=== PATIENT | female | born 1955 | race Caucasian/White ===

== ENCOUNTER → 2016-10-07 | Outpatient (CLI) | payer BC ==
[~2016-10-07] MED LIST: B-CO1CAP5 PO; LEVOXYL PO; PRM625 PO
--- NOTE | 2016-10-07 16:28 | MAMMOGRAPHY REPORT ---
BILATERAL DIGITAL SCREENING MAMMOGRAM WITH CAD: 10/07/2016 CLINICAL HISTORY: Routine screening. Patient has no complaints. TECHNIQUE: Bilateral CC and MLO views were obtained. Current study was also evaluated with a Comput er Aided Detection (CAD) system. COMPARISON: Comparison is made to exams dated: 09/21/2015 mammogram, 09/30/2014 mammogram, 09/19/2014 m ammogram, 07/26/2013 mammogram, 04/03/2012 mammogram, and 03/24/2012 mammogram - [facility]. BREAST COMPOSITION: There are scattered areas of fibroglandular density in both breasts. FINDINGS: There are stable asymmetries in the right breast. No suspicious mass, architectural disto rtion or cluster of microcalcifications is seen. IMPRESSION: ACR BI-RADS CATEGORY 1: NEGATIVE There is no mammographic evidence of malignancy. A 1 year screening mammogram is recommended. The p atient will receive written notification of the results. Approximately 10% of breast cancers are not detected with mammography. A negative mammographic repor t should not delay biopsy if a clinically suggestive mass is present. Paige White M.D. ay/:10/07/2016 16:26:09 Track Patrol: Maria Del Carmen DAVIDSON(R)(M), [facility] letter sent: Normal 1/2 BI-RADS Code: ACR BI-RADS Category 1: Negative
== END ==
LOC: C.MAMM 15:47
PROVIDERS: ATTEND Family Medicine
DX: Z12.31 Encounter for screening mammogram for malignant neoplasm of breast (principal)

== ENCOUNTER 2024-11-29 15:30 | Observation (INO) ==
--- NOTE | 2024-11-29 16:08 | Emergency Department Note ---
Impression & Plan Stroke-like symptoms, Hyponatremia, Hypokalemia, Hypomagnesemia ED Provider Note ED Provider Note NAME: ISABELL MACKENZIE AGE:68 SEX: Female : 1955 ARRIVES VIA: private vehicle INFORMANT: Patient ED PROVIDER(s): Nahed Sequeira DO CHIEF COMPLAINT: difficulty with word finding HPI: This is a 68-year-old female who presents emerged from due to concern for difficulty with word finding this morning. Patient states first episode happened at around 5:40 AM and lasted approximately half an hour. She states she and her were traveling from [place] to the area. She states after they returned home this happened again around noon and lasted about the same amount of time. She states she noticed it while speaking on the phone with a coworker. She denies any accompanying headaches, dizziness, vision changes, arm or leg weakness, or difficulty walking. She states she is otherwise recently been feeling well. She does have a history of high blood pressure as well as thyroid cancer and is being treated for this. She denies any other recent illness, fevers or chills. She states her blood pressure medication was changed not too long ago. PAST MEDICAL HISTORY:See Below PAST SURGICAL HISTORY:See Below FAMILY HISTORY:See Below SOCIAL HISTORY:See Below HOME MEDICATIONS:See Below ALLERGIES:See Below VITALS:See Below PHYSICAL EXAMINATION: GENERAL: alert, well appearing, well nourished, no distress, non-toxic EYE EXAM: normal conjunctiva, PERRL and EOM's grossly intact OROPHARYNX: no exudate, no erythema, lips, buccal mucosa, and tongue normal and mucous membranes are moist NECK: supple, no nuchal rigidity, no adenopathy, non-tender LUNGS: Clear to auscultation. Normal chest wall mechanics, no w/r/r HEART: no murmurs, S1 normal and S2 normal ABDOMEN: abdomen soft, non-tender, normo-active bowel sounds, no masses, no rebound or guarding. SKIN: no rashes, petechiae, orbruising UPPER EXTREMITIES: upper extremities are grossly normal. FROM, nml pulses b/l. LOWER EXTREMITIES: No pitting edema. FROM, nml pulses b/l. NEURO EXAM: Normal sensorium, cranial nerves II-XII grossly intact, normal speech, no facial droop,nogross weakness of arms, no gross weakness of legs. Gross sensation intact. No ataxia.NIHSS 0. Vital Signs: reviewed and remarkable Differential Diagnosis: ischemic Stroke, hemorrhagic stroke, bells palsy, mass, neoplasm, migraine headache, seizure, subarachnoid hemorrhage, TIA, transient global amnesia, medication ADR, as well as others were considered MEDICAL DECISION MAKING: This is a 68-year-old female who presents emergency department due to several episodes today of difficulty with word finding and speaking. Episodes have resolved by the time of arrival here she was afebrile and hemodynamically stable on arrival. Patient was made a stroke alert upon arrival and sent urgently for CT imaging. Upon returning to the room, labs drawn and sent, IV established, EKG performed at bedside interpreted by me and patient monitored on telemetry. She had a normal and nonfocal neuroexam at bedside. CT/CTA were reassuring. I did discuss case initially with radiology as patient seen during a EMR downtime. Case then discussed with Dr. Calhoun of [facility] who recommended further stroke workup after his evaluation given likely TIA. Patient also found on labs to have significant electrolyte abnormalities. She was given oral potassium repletion and IV magnesium repletion. Case discussed with the hospitalist team for additional evaluation and management. Consultation(s): 1548: Discussed with Dr. Guy, radiology, no obvious ICH or large stroke on CT. 1601: Discussed with Dr. Calhoun, [facility] regarding the strokelike symptoms. He will evaluate her at bedside. Feels given symptoms have completely resolved, patient not a TNK candidate. Symptoms not suggestive of a large vessel occlusion additionally. 1735: Discussed with [facility] hospitalist team, for additional evaluation and management. ER Treatment Provided: See below Diagnostics Interpreted By Me: -ECG: Normal sinus at 78, normal axis, normal QRS, slightly prolonged QTc, T wave inversions noted in 3, aVF, and V3. -Cardiac Monitoring: An order was placed for continuous cardiac monitoring. The monitor shows a rate of 78 with normal sinus rhythm. -Laboratory studies: As stated above and show below. -Imaging studies: ct head: no ich Triage Nursing Note Reviewed Prior/Outside Records Reviewed Critical Care: Critical care of 39 min performed to assess and manage high likelihood of life-threatening stroke like symptoms, involving labs and imaging performed with assessment to evaluate stroke like symptoms diagnosis with frequent reassessment. This time includes bedside time, treatment discussions with patient/family/consultants, documentation time and excludes procedure time. Past Med/Surg History Problem List (Updated 11/29/24 @ 19:57 by Nahed Sequeira DO) Hypomagnesemia (Acute) Hypokalemia (Acute) Hyponatremia (Acute) Stroke-like symptoms (Acute) Recurrent thyroid cancer Pulmonary nodule Dry skin dermatitis Pruritus CMC arthritis Capsulitis of metatarsophalangeal (MTP) joint Mass in neck Acid reflux Hypoparathyroidism (Chronic) Vitamin D deficiency (Chronic) Hypothyroidism, postablative (Chronic) Hx of papillary thyroid carcinoma (Chronic) Lumbar spondylosis (Chronic) Lumbar radicular pain (Chronic) Sacroiliitis (Chronic) HTN (hypertension) (Chronic) Medical History (Updated 11/29/24 @ 19:57 by Nahed Sequeira DO) Anemia HTN (hypertension) Lumbar spondylosis Hx of papillary thyroid carcinoma 2018; per chart review, had recurrence in 2 nodules anterior neck which were removed 2020 Hypothyroidism Acid reflux Arthritis Hx of dermatitis Pulmonary nodule History of COVID-19 (2022) no hosp; resolved History of postoperative nausea and vomiting History of anesthesia reaction hx elevated bp post op Surgical History History of esophagogastroduodenoscopy (EGD) Hx of colonoscopy History of foot surgery left History of appendectomy H/O thumb surgery H/O hernia repair Hx of tonsillectomy H/O: hysterectomy H/O thyroidectomy 2017 Family History Sister Hypothyroidism Mother Hearing loss Hypertension Asthma Father Cancer Brother Allergies Other No family history of adverse response to anesthesia No family history of bleeding disorder Social History Smoking Status: Former smoker Tobacco Type: Cigarettes Age Started Using Tobacco: 36; Age Quit Using Tobacco: 38; packs per day: 0.5; Second Hand Exposure: No; Hx Alcohol Use: Yes Alcohol type: beer Alcohol type Comment: 5 Hx Substance Use: No Preferred Language: Lao Communication Ability: Effective Visual Impairment: No Limitations Hearing Ability: Normal Identification Technician Required: No Beliefs That Will Affect Care: None marital status: Current Living Situation: Significant Other current occupational status: employed 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 azithromycin Allergy Intermediate Hives Verified 11/29/24 17:31 chondroitin sulfate A Allergy Intermediate Rash Verified 11/29/24 17:31 [From Osteo Bi-Flex] clindamycin Allergy Intermediate Rash Verified 11/29/24 17:31 glucosamine Allergy Intermediate Rash Verified 11/29/24 17:31 [From Osteo Bi-Flex] prednisone Allergy Intermediate RASH Verified 11/29/24 17:31 strawberry Allergy Intermediate Hives Verified 11/29/24 17:31 albuterol AdvReac Intermediate Tachycardia Verified 11/29/24 17:31 levofloxacin AdvReac Intermediate GI UPSET Verified 11/29/24 17:31 Sulfa (Sulfonamide AdvReac Intermediate Tachycardia Verified 11/29/24 17:31 Antibiotics) sulfadiazine AdvReac Intermediate Abdominal Verified 11/29/24 17:31 Pain sulfamethoxazole AdvReac Intermediate Tachycardia Verified 11/29/24 17:31 tetracycline AdvReac Intermediate Abdominal Verified 11/29/24 17:31 Pain HYDROcodone-Homatropine SYRP AdvReac Unknown Unknown Uncoded 11/29/24 17:31 Home Meds Home Medications Medication Instructions Recorded Confirmed omeprazole magnesium 20 mg 20 mg PO DAILY PRN Acid Reflux 01/20/24 11/29/24 tablet,delayed release (Prilosec OTC) hydrochlorothiazide 25 mg tablet 25 mg PO QPM 09/06/24 11/29/24 cholecalciferol (vitamin D3) 50 4,000 unit PO QDD 11/29/24 11/29/24 mcg (2,000 unit) capsule clobetasol 0.05 % topical ointment 1 applic topical DAILY PRN SKIN 11/29/24 11/29/24 RASH estradiol 1 mg tablet 1 mg PO QPM 11/29/24 11/29/24 lenvatinib 14 mg/day (10 mg x 1 17 mg PO QPM 11/29/24 11/29/24 and 4 mg x 1) capsule (Lenvima) valsartan 320 mg tablet 320 mg PO QPM 11/29/24 11/29/24 vitamin B complex 1 tab PO QPM 11/29/24 11/29/24 Previous Rx's Medication Instructions Recorded levothyroxine 200 mcg tablet 200 mcg PO DAILY #30 tabs 09/12/24 levothyroxine 25 mcg tablet 25 mcg PO DAILY #30 tabs 09/12/24 Results & Data (ED) Vital Signs Vital Signs - 24 hr 11/29/24 16:02 11/29/24 16:02 11/29/24 16:09 Pulse Rate Pulse Rate [Apical] 77 78 Respiratory Rate 18 18 Respiratory Effort / Characteristics Non-Labored Spontaneous Non-Labored Spontaneous Respiratory Depth Normal Normal Respiratory Pattern Regular Blood Pressure Blood Pressure [Left Arm] 160/88 H 172/98 H Blood Pressure Mean Blood Pressure Mean [Left Arm] 112 122 Pulse Oximetry 98 98 95 Oxygen Delivery Method Room Air Room Air Room Air 11/29/24 16:16 11/29/24 18:16 11/29/24 19:13 Pulse Rate 77 75 Pulse Rate [Apical] 77 Respiratory Rate 18 20 Respiratory Effort / Characteristics Non-Labored Spontaneous Respiratory Depth Normal Respiratory Pattern Blood Pressure 181/105 H Blood Pressure [Left Arm] 186/102 H Blood Pressure Mean 130 Blood Pressure Mean [Left Arm] 130 Pulse Oximetry 96 98 Oxygen Delivery Method Room Air Room Air Laboratory Data 11/29/24 Unknown 11/29/24 Unknown Lab Results 11/29/24 11/29/24 11/29/24 Range/Units 17:48 18:17 Unknown WBC 3.24 L (4.8-10.8) K/ul RBC 3.56 L (4.20-5.40) M/uL Hgb 12.6 (12.0-16.0) g/dl Hct 34.8 L (37.0-47.0) % MCV 97.8 (80.0-100.0) fL MCH 35.4 H (25.0-34.0) pg MCHC 36.2 H (32.0-36.0) g/dL RDW Std Deviation 49.1 H (36.4-46.3) fL RDW Coeff of Cindi 13.7 (11.5-14.5) % Plt Count 138 (130-400) K/uL MPV 10.6 (9.4-12.4) fL Immature Gran % (Auto) 0.0 % Neut % (Auto) 50.0 % Lymph % (Auto) 34.6 % [place] % (Auto) 13.9 % Eos % (Auto) 0.9 % Baso % (Auto) 0.6 % Neut # (Auto) 1.62 (1.40-6.50) K/uL Lymph # (Auto) 1.12 L (1.20-3.40) K/uL [place] # (Auto) 0.45 (0.11-0.59) K/uL Eos # (Auto) 0.03 (0.00-0.50) K/uL Baso # (Auto) 0.02 (0.00-0.20) K/uL Immature Gran # (Auto) 0.00 L (0.01-0.20) K/uL PT 10.4 (9.0-12.0) Seconds INR 1.0 (0.9-1.1) APTT 28 (21-31) Seconds PTT Ratio 1.0 Sodium 125 L (136-145) mmol/L Potassium 2.9 L (3.5-5.1) mmol/L Chloride 86 L (98-107) mmol/L Carbon Dioxide 27 (21-32) mmol/L Anion Gap 12 H (3-11) BUN 10 (6-23) mg/dl Creatinine 0.58 L (0.6-1.2) mg/dl Est Cr Clr Drug Dosing 81.2 ml/min eGFR 97.29 BUN/Creatinine Ratio 17.2 (10-20) Glucose 102 H (70-99(Fasting)) mg/dl Osmolality 255 L (280-300) mOsm/kg Calcium 7.7 L (8.6-10.3) mg/dl Magnesium 1.4 L (1.7-2.4) mg/dl Total Bilirubin 0.8 (0.2-1.0) mg/dl AST 24 (13-39) U/L ALT 19 (7-52) U/L Alkaline Phosphatase 97 (34-104) U/L Troponin I High Sens 22.5 H 26.9 H (0-14) pg/ml Total Protein 6.7 (6.0-8.3) gm/dl Albumin 3.7 (3.4-5.0) gm/dl Globulin 3.0 (2.5-4.0) gm/dl Albumin/Globulin Ratio 1.2 (0.9-2) Urine Color Yellow Urine Appearance Clear (Clear) Urine pH 6.0 (4.5-7.5) Ur Specific [place] 1.037 H (1.000-1.030) Urine Protein Negative (Negative) Urine Glucose (UA) Negative (Negative) Urine Ketones Trace H (Negative) Urine Blood Negative (Negative) Urine Nitrite Negative (Negative) Urine Bilirubin Negative (Negative) Urine Urobilinogen Negative (Negative) Ur Leukocyte Esterase Negative (Negative) Urine Osmolality 200 L (500-800) mOsm/kg Ur Random Sodium 28 mmol/L Urine Comment Administered Medications Discontinued Medications Magnesium Sulfate/Dextrose (Magnesium Sulfate / D5w) 1 gm in 100 mls @ 100 mls/hr IV NOW STA Stop: 11/29/24 17:49 Last Infusion: 11/29/24 18:06 Dose: Infused Documented By: Admin: 11/29/24 17:04 Dose: 100 mls/hr Documented By: MARTHA Sodium Chloride (Nss) 1,000 mls @ 999 mls/hr IV .Q1H1M MASON Stop: 11/29/24 18:59 Last Infusion: 11/29/24 19:45 Dose: Infused Documented By: Admin: 11/29/24 18:17 Dose: 999 mls/hr Documented By: MARTHA Ioversol (Optiray 320 125ml) 120 ml IV ONCE ONE Stop: 11/29/24 16:21 Last Admin: 11/29/24 16:20 Dose: 120 ml Documented By: JOSEF Potassium Chloride (Potassium Chloride Crtab 20 Meq Tabcr) 40 meq PO NOW STA Stop: 11/29/24 16:51 Last Admin: 11/29/24 17:04 Dose: 40 meq Documented By: MARTHA Imaging Data Radiologist's Impression: Head CT 11/29/24 16:09 CT SCAN OF THE BRAIN WITHOUT IV CONTRAST CLINICAL HISTORY: Stroke alert. COMPARISON STUDY: PET/CT October 20, 2024. TECHNIQUE: Unenhanced axial CT scan of the brain was performed from the vertex to the skull base. A dose lowering technique was utilized adhering to the principles of ALARA. FINDINGS: No acute intracranial hemorrhage, midline shift or mass effect is present. Ventricular system is normal. Basal cisterns are patent. There are no extra axial collections. White matter hypodensity suggests small vessel disease. A 7 mm hypodensity within the right basal ganglia is age-indeterminate but probably old. Comparison with prior PET/CT is difficult given differences in technique. IMPRESSION: 1. No acute intracranial findings. 2. 7 mm hypodensity within the right basal ganglia which is age-indeterminate but likely chronic. ACT 112: Negative or not required by law. Electronically signed by: Jsoe Guy M.D. 11/29/2024 4:28 PM Head CTA 11/29/24 16:09 CT angio neck with con, CT angio head w con CLINICAL HISTORY: neuro deficit, acute stroke suspected. TECHNIQUE: Following the IV administration of 120 of Optiray, CT angiogram of the neck was performed from the aortic arch to the skull base. Images are reviewed in the axial, sagittal, and coronal planes. 3-D MIPS images are created and assessed. IV contrast was administered without complication. All measurements were calculated based on NASCET criteria. A dose lowering technique was utilized adhering to the principles of ALARA. COMPARISON STUDY: None FINDINGS: The origin of the left common carotid artery is off the field of view inferiorly. No significant narrowing or occlusion seen at the common or internal carotid or vertebral arteries bilaterally. Basilar artery is patent. Anterior, middle, and posterior cerebral arteries are patent bilaterally. Cerebral venous sinuses opacify normally. IMPRESSION: No significant arterial narrowing or occlusion seen at the neck or brain. ACT 112: Negative or not required by law. The above report was generated using voice recognition software. It may contain grammatical, syntax or spelling errors. Electronically signed by: Willian Nichols M.D. 11/29/2024 4:28 PM Neck CTA 11/29/24 16:09 CT angio neck with con, CT angio head w con CLINICAL HISTORY: neuro deficit, acute stroke suspected. TECHNIQUE: Following the IV administration of 120 of Optiray, CT angiogram of the neck was performed from the aortic arch to the skull base. Images are reviewed in the axial, sagittal, and coronal planes. 3-D MIPS images are created and assessed. IV contrast was administered without complication. All measurements were calculated based on NASCET criteria. A dose lowering technique was utilized adhering to the principles of ALARA. COMPARISON STUDY: None FINDINGS: The origin of the left common carotid artery is off the field of view inferiorly. No significant narrowing or occlusion seen at the common or internal carotid or vertebral arteries bilaterally. Basilar artery is patent. Anterior, middle, and posterior cerebral arteries are patent bilaterally. Cerebral venous sinuses opacify normally. IMPRESSION: No significant arterial narrowing or occlusion seen at the neck or brain. ACT 112: Negative or not required by law. The above report was generated using voice recognition software. It may contain grammatical, syntax or spelling errors. Electronically signed by: Willian Nichols M.D. 11/29/2024 4:28 PM Discharge Plan Visit Data Chief Complaint: Stroke Alert Stated Complaint: CONFUSED, SLURRED SPEECH ED Provider: Nahed Sequeira Discharge Problem: Stroke-like symptoms, Hyponatremia, Hypokalemia, Hypomagnesemia Patient Disposition: Being Evaluated by Hospitalist Condition: Fair Forms Stand Alone Forms: [facility] Prescriptions Prescriptions: No Action omeprazole magnesium [Prilosec OTC] 20 mg tablet,delayed release (DR/EC) 20 mg PO DAILY PRN (Reason: Acid Reflux) hydrochlorothiazide 25 mg tablet 25 mg PO QPM levothyroxine 25 mcg tablet 25 mcg PO DAILY Qty: 30 5RF Rx Instructions: TOTAL DOSE 225 MCG--TAKES WITH 200 MCG TAB. LT4 levothyroxine 200 mcg tablet 200 mcg PO DAILY Qty: 30 5RF Rx Instructions: TOTAL DOSE 225 MCG--TAKES WITH 25 MCG TAB. LT4 valsartan 320 mg tablet 320 mg PO QPM vitamin B complex Tablet 1 tab PO QPM Lenvima 14 mg/day(10 mg x 1-4 mg x 1) capsule 17 mg PO QPM estradiol 1 mg tablet 1 mg PO QPM clobetasol 0.05 % ointment 1 applic topical DAILY PRN (Reason: SKIN RASH) cholecalciferol (vitamin D3) 50 mcg (2,000 unit) capsule 4,000 unit PO QDD Referrals Referrals: Francis Robertson MD [Primary Care Provider] -
[2024-11-29] MEDS: OPTIRAY 320 125ml IV ONE (16:20)
[2024-11-29 16:24] LABS: Hematocrit (blood only) 34.8 % (37.0-47.0); Hemoglobin 12.6 g/dl (12.0-16.0); Immature Granulocytes # (auto) 0.00 K/uL (0.01-0.20); Immature Granulocytes % (auto) 0.0 %; Mean Corpuscular Hemoglobin 35.4 pg (25.0-34.0); Mean Corpuscular Volume 97.8 fL (80.0-100.0); Platelet Count 138 K/uL (130-400); RDW Standard Deviation 49.1 fL (36.4-46.3); Red Blood Count 3.56 M/uL (4.20-5.40); White Blood Count 3.24 K/ul (4.8-10.8)
--- NOTE | 2024-11-29 16:30 | CT Scan Report ---
CT angio neck with con, CT angio head w con CLINICAL HISTORY: neuro deficit, acute stroke suspected. TECHNIQUE: Following the IV administration of 120 of Optiray, CT angiogram of the neck was performed from the aortic arch to the skull base. Images are reviewed in the axial, sagittal, and coronal plane s. 3-D MIPS images are created and assessed. IV contrast was administered without complication. All m easurements were calculated based on NASCET criteria. A dose lowering technique was utilized adherin g to the principles of ALARA. COMPARISON STUDY: None FINDINGS: The origin of the left common carotid artery is off the field of view inferiorly. No signif icant narrowing or occlusion seen at the common or internal carotid or vertebral arteries bilaterally . Basilar artery is patent. Anterior, middle, and posterior cerebral arteries are patent bilaterally. Cerebral venous sinuses opacify normally. IMPRESSION: No significant arterial narrowing or occlusion seen at the neck or brain. ACT 112: Negative or not required by law. The above report was generated using voice recognition software. It may contain grammatical, syntax o r spelling errors. Electronically signed by: Willian Nichols M.D. 11/29/2024 4:28 PM
--- NOTE | 2024-11-29 16:30 | CT Scan Report ---
CT SCAN OF THE BRAIN WITHOUT IV CONTRAST CLINICAL HISTORY: Stroke alert. COMPARISON STUDY: PET/CT October 20, 2024. TECHNIQUE: Unenhanced axial CT scan of the brain was performed from the vertex to the skull base. A dose lowering technique was utilized adhering to the principles of ALARA. FINDINGS: No acute intracranial hemorrhage, midline shift or mass effect is present. Ventricular syst em is normal. Basal cisterns are patent. There are no extra axial collections. White matter hypodensi ty suggests small vessel disease. A 7 mm hypodensity within the right basal ganglia is age-indetermin ate but probably old. Comparison with prior PET/CT is difficult given differences in technique. IMPRESSION: 1. No acute intracranial findings. 2. 7 mm hypodensity within the right basal ganglia which is age-indeterminate but likely chronic. ACT 112: Negative or not required by law. Electronically signed by: Jose Guy M.D. 11/29/2024 4:28 PM
[2024-11-29 16:38] LABS: Alanine Aminotransferase 19.0 U/L (7-52); Albumin Globulin Ratio 1.2 (0.9-2); Alkaline Phosphatase 97.0 U/L (34-104); Anion Gap 12.0 (3-11); Bilirubin,Total 0.8 mg/dl (0.2-1.0); Blood Urea Nitrogen 10.0 mg/dl (6-23); Calcium 7.7 mg/dl (8.6-10.3); Carbon Dioxide 27.0 mmol/L (21-32); Chloride 86.0 mmol/L (98-107); Creatinine Clr Calc Pharmacy 81.2 ml/min; Globulin 3.0 gm/dl (2.5-4.0); Glucose 102.0 mg/dl (70-99(Fasting)); Magnesium 1.4 mg/dl (1.7-2.4); Potassium 2.9 mmol/L (3.5-5.1); Sodium 125.0 mmol/L (136-145); Total Protein 6.7 gm/dl (6.0-8.3)
[2024-11-29 16:50] LABS: INR 1.0 (0.9-1.1); Partial Thromboplastin Time 28 Seconds (21-31); Prothrombin Time 10.4 Seconds (9.0-12.0)
[2024-11-29] MEDS: POTASSIUM CHLORIDE CRTAB 20 MEQ TABCR PO STA ×2 (17:04→20:28)
[2024-11-29] MEDS: MAGNESIUM SULFATE / D5W 1 GM/100 ML BAG IV STA (17:04)
[2024-11-29] MEDS ORDERED: SODIUM CHLORIDE 0.9% 1,000 ML IV SCH (18:00)
[2024-11-29] MEDS: SODIUM CHLORIDE 0.9% 1,000 ML IV SCH (18:17)
[2024-11-29 18:26] LABS: Appearance Urine Clear (Clear); Glucose Urine UA Negative (Negative)
--- NOTE | 2024-11-29 18:26 | History & Physical Report ---
Date of Service November 29, 2024 Assessment & Plan (1) Stroke-like symptoms: (2) Recurrent thyroid cancer: (3) Pulmonary nodule: (4) HTN (hypertension): (5) Anemia: Plan 68-year-old female with past medical history of stage IV thyroid cancer with metastasis to her lungs, hypertension, post ablative hypothyroidism and hypoparathyroidism, GERD, vitamin D deficiency. She presented after experiencing 2 episodes of difficulty with word finding and speaking that both resolved after 30 minutes. She was asymptomatic upon arrival to ED. She was admitted for stroke workup and electrolyte derangement repletion. #TIA - symptoms of difficulty with word finding and speaking x 2 episodes, both resolved after 30 minutes. Asymptomatic since arrival to ED. CTA H/N neg. Symptoms may be from hyponatremia - Brain MRI pending - Echocardiogram pending to assess for thrombus - last echo in July 2024 noted EF 63%, no regional wall motion abnormalities, normal diastolic function - Start Plavix 75 mg daily. Deferring DAPT with aspirin given anaphylactic allergy to NSAIDs - Start high intensity statin with Atorvastatin 40 mg daily - Lipid panel, A1c ordered with AM labs - PT/OT consulted #Electrolyte derangements hyponatremia at 125, hypokalemia at 2.7, hypomagnesemia at 1.4, hypocalcemia at 7.7 - Patient reports this has been an ongoing problem since starting Lenvima for her thyroid cancer - Repleted with 1 g IV mag, 40 mEq PO K, and NSS @125 cc/hrr in ED. Will replete with additional 2 g IV mag, 40 mEq PO K, 1 g IV calcium gluconate, and 1 L NSS bolus - Repeat BMP at 2000. Repeat BMP, CBC, mag with a.m. labs - Serum osmolality, urine osmolality, urine sodium pending #Metastatic thyroid cancer -follows with [facility]CP and endocrinology - Continue levothyroxine 225 mcg daily - Recently transitioned to levothyroxine from [place] Thyroid in August 2024 by endocrinology. Will add TSH to a.m. labs. Per endocrinology note, goal of thyroid treatment is to make TSH essentially undetectable -continue home Lenvima #Hypertension - Continue valsartan 320 mg daily as symptoms have resolved and this is TIA, no permissive hypertension needed - IV Hydralazine PRN with parameters Dispo: PCU VTE PPx: SCDs, Plavix CODE STATUS: Full code History of Present Illness Chief Complaint: Difficulty with word finding Primary Care Provider: Francis Robertson MD Mario is a pleasant 68-year-old female with past medical history of stage IV thyroid cancer with metastasis to her lungs, hypertension, post ablative hypothyroidism and hypoparathyroidism, GERD, vitamin D deficiency. She presented from home with difficulty with word finding and speaking. At the time my exam, the patient was lying in bed in no acute distress. She states around 5:45 AM this morning, she had an episode of difficulty with word finding and speaking when driving home from [place]. She describes this as "knowing when I went to say but different words were coming out of my mouth." This resolved after approximately 30 minutes. She had a second episode with the same symptoms again around 12:00 when on the phone with her coworker. Again, this resolved after approximately 30 minutes. She has been completely asymptomatic since her arrival to the ED. She denies any lightheadedness, dizziness, visual changes, headache, unilateral weakness, difficulty ambulating, facial droop, chest pain, shortness of breath during these episodes. Recent medication changes include transitioning from [place] Thyroid to levothyroxine, discontinuing HCTZ and starting spironolactone, and discontinuing a different ARB and starting valsartan. She notes that approximately a week and a half ago when she started the spironolactone and valsartan, she began having significant diarrhea. She stopped her spironolactone and restarted her HCTZ at that time. She also started taking Imodium at that time. Her diarrhea has since resolved. She has a listed anaphylactic allergy to NSAIDs. When asked if she has taken aspirin, she reports "probably in childhood but definitely not in the past couple decades." Vitals on admission significant for hypertension with BP 186/102; vitals otherwise stable. Labs on admission are significant for leukopenia (chronic), hyponatremia with NA 125, hypokalemia with K2.9, hypomagnesemia with mag 1.4, hypocalcemia with Ca 7.7. Head CT, head CTA, neck CTA on admission without acute findings. We discussed code status, patient wishes to be a full code. Allergies Allergy/AdvReac Type Severity Reaction Status Date / Time NSAIDS (Non-Steroidal Allergy Severe ANAPHYLAXIS Verified 11/29/24 17:31 Anti-Inflamma Penicillins Allergy Severe SWELLING Verified 11/29/24 17:31 A CHILD PER HER PARENTS. azithromycin Allergy Intermediate Hives Verified 11/29/24 17:31 chondroitin sulfate A Allergy Intermediate Rash Verified 11/29/24 17:31 [From Osteo Bi-Flex] clindamycin Allergy Intermediate Rash Verified 11/29/24 17:31 glucosamine Allergy Intermediate Rash Verified 11/29/24 17:31 [From Osteo Bi-Flex] prednisone Allergy Intermediate RASH Verified 11/29/24 17:31 strawberry Allergy Intermediate Hives Verified 11/29/24 17:31 albuterol AdvReac Intermediate Tachycardia Verified 11/29/24 17:31 levofloxacin AdvReac Intermediate GI UPSET Verified 11/29/24 17:31 Sulfa (Sulfonamide AdvReac Intermediate Tachycardia Verified 11/29/24 17:31 Antibiotics) sulfadiazine AdvReac Intermediate Abdominal Verified 11/29/24 17:31 Pain sulfamethoxazole AdvReac Intermediate Tachycardia Verified 11/29/24 17:31 tetracycline AdvReac Intermediate Abdominal Verified 11/29/24 17:31 Pain homatropine AdvReac Unknown Unknown Verified 11/29/24 20:19 [From Hycodan (with homatropine)] hydrocodone AdvReac Unknown Unknown Verified 11/29/24 20:19 [From Hycodan (with homatropine)] Home Medications Medication Instructions Recorded Confirmed Type omeprazole magnesium 20 mg 20 mg PO DAILY PRN Acid Reflux 01/20/24 11/29/24 History tablet,delayed release (Prilosec OTC) hydrochlorothiazide 25 mg tablet 25 mg PO QPM 09/06/24 11/29/24 History levothyroxine 200 mcg tablet 200 mcg PO DAILY #30 tabs 09/12/24 11/29/24 Rx levothyroxine 25 mcg tablet 25 mcg PO DAILY #30 tabs 09/12/24 11/29/24 Rx cholecalciferol (vitamin D3) 50 4,000 unit PO QDD 11/29/24 11/29/24 History mcg (2,000 unit) capsule clobetasol 0.05 % topical ointment 1 applic topical DAILY PRN SKIN 11/29/24 11/29/24 History RASH estradiol 1 mg tablet 1 mg PO QPM 11/29/24 11/29/24 History lenvatinib 14 mg/day (10 mg x 1 17 mg PO QPM 11/29/24 11/29/24 History and 4 mg x 1) capsule (Lenvima) valsartan 320 mg tablet 320 mg PO QPM 11/29/24 11/29/24 History vitamin B complex 1 tab PO QPM 11/29/24 11/29/24 History Past Med/Surg History Problem List (Updated 11/29/24 @ 19:57 by Nahed Sequeira DO) Hypomagnesemia (Acute) Hypokalemia (Acute) Hyponatremia (Acute) Stroke-like symptoms (Acute) Recurrent thyroid cancer Pulmonary nodule Dry skin dermatitis Pruritus CMC arthritis Capsulitis of metatarsophalangeal (MTP) joint Mass in neck Acid reflux Hypoparathyroidism (Chronic) Vitamin D deficiency (Chronic) Hypothyroidism, postablative (Chronic) Hx of papillary thyroid carcinoma (Chronic) Lumbar spondylosis (Chronic) Lumbar radicular pain (Chronic) Sacroiliitis (Chronic) HTN (hypertension) (Chronic) Medical History (Updated 11/29/24 @ 19:57 by Nahed Sequeira DO) Anemia HTN (hypertension) Lumbar spondylosis Hx of papillary thyroid carcinoma 2018; per chart review, had recurrence in 2 nodules anterior neck which were removed 2020 Hypothyroidism Acid reflux Arthritis Hx of dermatitis Pulmonary nodule History of COVID-19 (2022) no hosp; resolved History of postoperative nausea and vomiting History of anesthesia reaction hx elevated bp post op Surgical History History of esophagogastroduodenoscopy (EGD) Hx of colonoscopy History of foot surgery left History of appendectomy H/O thumb surgery H/O hernia repair Hx of tonsillectomy H/O: hysterectomy H/O thyroidectomy 2017 Family History Sister Hypothyroidism Mother Hearing loss Hypertension Asthma Father Cancer Brother Allergies Other No family history of adverse response to anesthesia No family history of bleeding disorder Social History Smoking Status: Never smoker Tobacco Type: Cigarettes Age Started Using Tobacco: 36; Age Quit Using Tobacco: 38; packs per day: 0.5; Second Hand Exposure: No; Hx Alcohol Use: Yes Alcohol type: beer Alcohol type Comment: 5 Hx Substance Use: No Preferred Language: German Communication Ability: Effective Visual Impairment: No Limitations Hearing Ability: Normal 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 Feels Safe at Home: Yes Safety Concerns: Feels Safe At This Time Assistive Devices: Glasses Review of Systems Review of Systems: All systems reviewed & are unremarkable except as noted in HPI & below Physical Exam Physical Exam: General: No acute distress, nondiaphoretic, well-developed, well-nourished. Skin: Warm, dry. No rashes or peripheral edema noted. Cardiac: Regular rate and rhythm without murmurs gallops or rubs. Pulm: Clear to auscultation bilaterally without wheezes, rales or rhonchi. Normal respiratory effort. 96% on room air. Abdominal: Soft, nontender, nondistended. Bowel sounds present. Neuro: A&O x3. No focal neurological deficits. Nonlateralizing neurological exam. Normal speech, no facial droop. Normal strength and sensation in all extremities. Cranial nerves intact. Results & Data Results & Data Vital Signs (Past 12 Hours) Vital Signs Pulse Pulse Resp BP Pulse Ox O2 Del Method 11/29/24 16:16 77 11/29/24 16:09 78 18 172/98 H 95 Room Air 11/29/24 16:02 77 18 160/88 H 98 Room Air 11/29/24 16:02 98 Room Air Laboratory Results Reviewed CBC with differential Reviewed coags Reviewed CMP, chemistries Diagnostic Findings Reviewed head CT Reviewed head CT Reviewed neck CT Supervising Physician Co-Signing Physician Notes PA Supervision Note: I personally saw and examined the patient. I verified all knott points and agree with SRIKANTH Machuca with the following exceptions and/or additions: S-Pt here with two discrete episodes of brief expressive aphasia. No other neuro symptoms. History and ROS reviewed as above O- Vitals reviewed Gen: [AAOx3, NAD] HEENT: [anicteric sclerae, EOMI] CV: [RRR no mgr nl S1S2] Pulm: [CTAB no wcr] Abd: [+BS soft NT ND no masses or hernias] Ext: [no edema, 2+ DP pulses] Skin: [no rashes, warm/dry] Neuro: [full strength throughout] CBC, BMP reviewed A/P-68 yo female here with expressive aphasia x 2, suspect from hyponatremia vs TIA CVA workup as above, give IV NS and serial BMPs to be followed PG Care Time/CCT Total # of Minutes Spent Total Time Spent with Patient: Total time spent is greater than 50% in coordination of care (as documented) at patient's floor/unit and/or counseling patient: Coding Level of Care Code 98554 INT INP/OBS CARE 3/75MIN Diagnoses Stroke-like symptoms R29.90 Recurrent thyroid cancer C73 Pulmonary nodule R91.1 HTN (hypertension) I10 Anemia D64.9
[2024-11-29] MEDS ORDERED: ACETAMINOPHEN 325 MG TAB PO PRN (20:14)
[2024-11-29] MEDS ORDERED: POLYETHYLENE (MIRALAX) 17 GM PACK PO PRN (20:14)
[2024-11-29] MEDS ORDERED: ONDANSETRON INJ 2 MG/ML 2 ML VIAL IV PRN (20:14)
[2024-11-29] MEDS: MAGNESIUM SULFATE / D5W 1 GM/100 ML BAG IV SCH (20:28)
[2024-11-29] MEDS: VALSARTAN 80 MG TAB PO SCH (20:47)
[2024-11-29] MEDS: CALCIUM GLUCONATE 1,000 MG/60 ML BAG IV STA (20:47)
[2024-11-29 23:09] LABS: Anion Gap 9.0 (3-11); Blood Urea Nitrogen 7.0 mg/dl (6-23); Calcium 8.1 mg/dl (8.6-10.3); Carbon Dioxide 26.0 mmol/L (21-32); Chloride 94.0 mmol/L (98-107); Creatinine Clr Calc Pharmacy 117.8 ml/min; Glucose 125.0 mg/dl (70-99(Fasting)); Potassium 3.5 mmol/L (3.5-5.1); Sodium 129.0 mmol/L (136-145)
--- NOTE | 2024-11-29 23:44 | Magnetic Resonance Report ---
Exam(s): MRI HEAD Without Contrast EXAM: MR Head Without Intravenous Contrast CLINICAL HISTORY: Reason for exam: Stroke workup. TECHNIQUE: Magnetic resonance images of the head/brain without intravenous contrast in multiple planes. COMPARISON: No relevant prior studies available. FINDINGS: Brain: Unremarkable. No mass. No hemorrhage. No acute infarct. Ventricles: Unremarkable. No ventriculomegaly. Bones/joints: Unremarkable. No acute fracture. Sinuses: Unremarkable as visualized. No acute sinusitis. Mastoid air cells: Unremarkable as visualized. No mastoid effusion. Orbits: Unremarkable as visualized. IMPRESSION: No acute intracranial abnormality. Electronically signed by: Tyrone Solis MD 11/29/24 23:44 PM
[2024-11-30 07:48] LABS: Hematocrit (blood only) 31.0 % (37.0-47.0); Hemoglobin 11.1 g/dl (12.0-16.0); Mean Corpuscular Hemoglobin 35.2 pg (25.0-34.0); Mean Corpuscular Volume 98.4 fL (80.0-100.0); Platelet Count 136 K/uL (130-400); RDW Standard Deviation 51.0 fL (36.4-46.3); Red Blood Count 3.15 M/uL (4.20-5.40); White Blood Count 3.00 K/ul (4.8-10.8)
[2024-11-30 08:04] LABS: Anion Gap 6.0 (3-11); Blood Urea Nitrogen 8.0 mg/dl (6-23); Calcium 7.9 mg/dl (8.6-10.3); Carbon Dioxide 27.0 mmol/L (21-32); Chloride 99.0 mmol/L (98-107); Cholesterol 175.0 mg/dl (0-200); Creatinine Clr Calc Pharmacy 98.1 ml/min; Glucose 107.0 mg/dl (70-99(Fasting)); HDL Cholesterol 46.0 mg/dl; Magnesium 2.5 mg/dl (1.7-2.4); Potassium 4.0 mmol/L (3.5-5.1); Sodium 132.0 mmol/L (136-145); Triglycerides 87.0 mg/dl (0-150)
[2024-11-30 08:15] LABS: Hemoglobin A1C 4.8 % (4.5-5.6)
[2024-11-30 08:18] LABS: Thyroid Stimulating Hormone 0.01 uIu/ml (0.300-4.500)
[2024-11-30] MEDS: LEVOTHYROXINE SODIUM 200 MCG TABLET PO SCH (09:02)
[2024-11-30] MEDS: LEVOTHYROXINE SODIUM 25 MCG TABLET PO SCH (09:04)
[2024-11-30] MEDS: ATORVASTATIN 40 MG TAB PO SCH (09:07)
[2024-11-30] MEDS: CLOPIDOGREL BISULFATE 75 MG TAB PO SCH (09:07)
[2024-11-30] MEDS: CALCIUM CARBONATE 500 MG CHEWABLE TAB PO SCH (09:07)
--- NOTE | 2024-11-30 11:04 | XCELERA ---
[id number]
[2024-11-30 12:07] VITALS: PULSE 77; RESP 17; TEMP 98.1; O2SAT 98
--- NOTE | 2024-11-30 12:22 | Discharge Summary ---
Discharge Summary Date of Service November 30, 2024 Principal Dx & Hospital Course #1 = Principal Diagnosis (1) TIA (transient ischemic attack): (2) Hyponatremia: (3) Hypomagnesemia: (4) HTN (hypertension): Plan 68-year-old female with past medical history of stage IV thyroid cancer with metastasis to her lungs, hypertension, post ablative hypothyroidism and hypoparathyroidism, GERD, vitamin D deficiency. She presented after exp eriencing 2 episodes of difficulty with word finding and speaking that both resolved after 30 minutes. She was asymptomatic upon arrival to ED. She was admitted for stroke workup and electrolyte derangement of sodium, potassium, and magnesium as well as calcium. #TIA - symptoms of difficulty with word finding and speaking x 2 episodes, both resolved after 30 minutes. Asymptomatic since arrival to ED. CTA H/N neg. Symptoms may be from hyponatremia - Brain MRI negative for stroke. - Echocardiogram with bubble study negative for thrombus, preserved EF, no significant valvular abnormalities, no interatrial shunt - Ordinarily would like to start an antiplatelet but the patient is allergic to NSAIDs and potentially aspirin. Plavix interacts with her Lenvima. In shared decision making, we will not start an antiplatelet drug at this time - Start high intensity statin with Atorvastatin 40 mg daily; lipid panel is acceptable but high intensity statins proven to prevent future stroke/TIA - HgbA1c normal-no diabetes - Needs improved blood pressure control especially since we are stopping her diuretics-add carvedilol 3.125 Mg p.o. twice daily and continue ARB - PT/OT consulted for no needs - Will arrange for 30-day cardiac event monitor to look for occult atrial fibrillation/flutter after discharge #Electrolyte derangements hyponatremia at 125, hypokalemia at 2.7, hypomagnesemia at 1.4, hypocalcemia at 7.7 - Patient reports this has been an ongoing problem since starting Lenvima for her thyroid cancer and has been having severe diarrhea for couple of weeks. She also resumed HCTZ on her own accord after stopping spironolactone which she thought was causing her diarrhea. Urine sodium 28 but difficult to tell if this is accurate because she was on HCTZ. Urine osmolality greater than 100 indicating excess ADH. - Magnesium and potassium and calcium were repleted. Sodium improved to 132 with 1 L of normal saline and holding HCTZ - Recommend discontinuing HCTZ on discharge -Start calcium carbonate 1000 mg p.o. once daily - Follow BMP and magnesium level in 2 to 3 days with PCP after discharge #Metastatic thyroid cancer -follows with CCP and endocrinology. TSH checked here and is low at 0.01 which is desirable. With some mild anemia and leukopenia likely related to Lenvima - Continue levothyroxine 225 mcg daily - Recently transitioned to levothyroxine from [place] [facility]roid in August 2024 by endocrinology. -continue home Lenvima and follow-up with oncology as scheduled #Hypertension-has had issues with severe hypertension uncontrolled for the last 6 months. Stopping HCTZ and spironolactone. Blood pressures here are actually fairly well-controlled on just valsartan. She will monitor her blood pressures at home - Continue valsartan 320 mg daily - Start carvedilol 3.125 Mg p.o. twice daily DVT prophylaxis-SCDs Disposition-stable for discharge to home Notes For Next Care Provider Check BMP, magnesium and calcium levels in 2 to 3 days Medication Changes From Visit See list Admission HPI Per Admitting Provider Mario is a pleasant 68-year-old female with past medical history of stage IV thyroid cancer with metastasis to her lungs, hypertension, post ablative hypothyroidism and hypoparathyroidism, GERD, vitamin D deficiency. She presented from home with difficulty with word finding and speaking. At the time my exam, the patient was lying in bed in no acute distress. She states around 5:45 AM this morning, she had an episode of difficulty with word finding and speaking when driving home from [place]. She describes this as "knowing when I went to say but different words were coming out of my mouth." This resolved after approximately 30 minutes. She had a second episode with the same symptoms again around 12:00 when on the phone with her coworker. Again, this resolved after approximately 30 minutes. She has been completely asymptomatic since her arrival to the ED. She denies any lightheadedness, dizziness, visual changes, headache, unilateral weakness, difficulty ambulating, facial droop, chest pain, shortness of breath during these episodes. Recent medication changes include transitioning from [place] Thyroid to levothyroxine, discontinuing HCTZ and starting spironolactone, and discontinuing a different ARB and starting valsartan. She notes that approximately a week and a half ago when she started the spironolactone and valsartan, she began having significant diarrhea. She stopped her spironolactone and restarted her HCTZ at that time. She also started taking Imodium at that time. Her diarrhea has since resolved. She has a listed anaphylactic allergy to NSAIDs. When asked if she has taken aspirin, she reports "probably in childhood but definitely not in the past couple decades." Vitals on admission significant for hypertension with BP 186/102; vitals otherwise stable. Labs on admission are significant for leukopenia (chronic), hyponatremia with NA 125, hypokalemia with K2.9, hypomagnesemia with mag 1.4, hypocalcemia with Ca 7.7. Head CT, head CTA, neck CTA on admission without acute findings. We discussed code status, patient wishes to be a full code. Discharge Exam Constitutional WD/WN, vitals as above Eyes PERRL, conjunctivae normal, anicteric sclerae ENMT external ear and nose normal, oropharynx normal Neck trachea midline, no thyromegaly Respiratory normal respiratory effort, lungs clear to auscultation Cardiovascular RRR, no murmur, no edema Chest (Breasts) Chest: normal inspection of chest Gastrointestinal (Abdomen) normal bowel sounds, soft, nontender, no hepatosplenomegaly Musculoskeletal Extremities: extremities normal to inspection; no cyanosis and no clubbing Skin no rashes, warm and dry Neurologic moves all extremities and awake; no focal motor deficits Psychiatric A+Ox3, euthymic affect Lymphatic no lymphedema Discharge Plan Discharge Items Patient Disposition: Home - Self-Care Reason For Visit: TIA,ELECTROLYTE DERANGEMENTS Discharge Diagnosis: Expressive aphasia-secondary to TIA versus hyponatremia Hyponatremia Hypomagnesemia Hypocalcemia Condition on Discharge: Good Activity: Resume your previous activity Non-emergency contact: Primary Care Provider and Oncologist Call non-emergency contact if: you have any medication questions and your symptoms worsen Follow-up/Referrals: Francis Robertson MD [Primary Care Provider] - (Follow-up within 1 to 2 weeks.) Diet: Heart Healthy Addtl Attending Provider Instructions: You were admitted with difficulty with your speech. This could have been from the low sodium levels, but a transient ischemic attack (TIA or mini stroke) cannot be completely ruled out. You were not placed on a blood thinner because of your allergy possibly to aspirin and because Plavix potentially interacts with your Lenvima. You were started on atorvastatin which is a cholesterol medicine to help prevent future TIA and stroke. Blood pressure control is very important to help prevent TIA and stroke as well. You were started on a new medication called carvedilol to help control your blood pressure. Please keep an eye on your blood pressures and heart rate at home and follow-up closely with your primary care physician. You will also need to have a 30-day heart monitor to wear around after discharge to look for irregular rhythms of the heart that can cause strokes and TIA. This will be mailed to your house. Your low sodium, magnesium, and calcium levels are likely secondary to a combination of your diarrhea as well as your water pills. Please stop taking all water pills. Your sodium level is improved with getting saline water through your IV. We replaced your magnesium and calcium as well. Please have your PCP check blood work in 2 to 3 days to ensure that your sodium and magnesium levels are continuing to improve or remain normal. Please continue taking Tums chewable calcium pills once daily. Risk Factors for Stroke: You can reduce your chances of stroke by working with your medical provider to adopt a healthy lifestyle. Some specific ways to lower your chance of stroke are: * If you are a smoker, now is the time to stop smoking cigarettes * If you are diabetic, improve the control of your blood sugars * Avoid excessive amounts of alcohol * Control high blood pressure * Lose weight if you are overweight * Be sure to lead an active lifestyle * Eat a healthy diet low in salt, cholesterol and fat You should know about other risk factors for stroke that you are unable to control. These include: * Age 55 years or older * Male gender * Certain racial groups: , or / * Family History of Stroke, Mini stroke or Heart Attack * Sickle Cell Disease Follow Up: It is important for you to keep your follow up appointments with your medical provider. Who to Call and When: Medical Emergencies: Call 911 immediately if you experience any of the following warning signs and symptoms of Stroke: * Sudden numbness or weakness of the face, arm or leg, especially on one side of the body * Sudden confusion, trouble speaking or understanding * Sudden trouble seeing in one or both eyes * Sudden trouble walking, dizziness, loss of balance or coordination * Sudden severe headache with no cause Do not delay calling 911 if you experience any warning signs or symptoms of a stroke. Delay in seeking medical attention may affect what treatments can be given to you. . Pending Studies at Discharge: No Stand-Alone Forms: [facility], Smoking Cessation Medications and DC Order Prescriptions: New atorvastatin 40 mg Tablet 40 mg PO QAM Qty: 30 0RF carvedilol 3.125 mg tablet 3.125 mg PO BID Qty: 60 0RF Rx Instructions: must administer with a meal/food calcium carbonate [Tums] 200 mg calcium (500 mg) Tablet,Chewable 1,000 mg PO QAM Qty: 60 0RF Continued omeprazole magnesium [Prilosec OTC] 20 mg tablet,delayed release (DR/EC) 20 mg PO DAILY PRN (Reason: Acid Reflux) levothyroxine 25 mcg tablet 25 mcg PO DAILY Qty: 30 5RF Rx Instructions: TOTAL DOSE 225 MCG--TAKES WITH 200 MCG TAB. LT4 levothyroxine 200 mcg tablet 200 mcg PO DAILY Qty: 30 5RF Rx Instructions: TOTAL DOSE 225 MCG--TAKES WITH 25 MCG TAB. LT4 valsartan 320 mg tablet 320 mg PO QPM vitamin B complex Tablet 1 tab PO QPM Lenvima 14 mg/day(10 mg x 1-4 mg x 1) capsule 17 mg PO QPM estradiol 1 mg tablet 1 mg PO QPM clobetasol 0.05 % ointment 1 applic topical DAILY PRN (Reason: SKIN RASH) cholecalciferol (vitamin D3) 50 mcg (2,000 unit) capsule 4,000 unit PO QDD Discontinued hydrochlorothiazide 25 mg tablet 25 mg PO QPM Discharge Orders: Discharge Order (Routine); Ordered 11/30/24 Ordered By: Chantel Okeefe Admission Data Admit Date/Time: 11/29/24 18:28 Attending Provider: Chantel Okeefe Admit Provider: Chantel Okeefe Primary Care Provider: Francis Robertson Other Providers: Chantel Okeefe Hospital Stay Data Consultations 11/29/24 17:29 ED Decision to Admit Stat Diagnostic Imagining Performed 11/29/24 16:09 CT angio head w con Stat CT angio neck with con Stat CT head/brain wo con Stat 11/29/24 20:14 MR brain wo con Urgent Pending Results Patient Have Any Pending Studies at Discharge: No Discharge Instructions Given to Patient (Per Discharging Provider) You were admitted with difficulty with your speech. This could have been from the low sodium levels, but a transient ischemic attack (TIA or mini stroke) cannot be completely ruled out. You were not placed on a blood thinner because of your allergy possibly to aspirin and because Plavix potentially interacts with your Lenvima. You were started on atorvastatin which is a cholesterol medicine to help prevent future TIA and stroke. Blood pressure control is very important to help prevent TIA and stroke as well. You were started on a new medication called carvedilol to help control your blood pressure. Please keep an eye on your blood pressures and heart rate at home and follow-up closely with your primary care physician. You will also need to have a 30-day heart monitor to wear around after discharge to look for irregular rhythms of the heart that can cause strokes and TIA. This will be mailed to your house. Your low sodium, magnesium, and calcium levels are likely secondary to a combination of your diarrhea as well as your water pills. Please stop taking all water pills. Your sodium level is improved with getting saline water through your IV. We replaced your magnesium and calcium as well. Please have your PCP check blood work in 2 to 3 days to ensure that your sodium and magnesium levels are continuing to improve or remain normal. Please continue taking Tums chewable calcium pills once daily. Risk Factors for Stroke: You can reduce your chances of stroke by working with your medical provider to adopt a healthy lifestyle. Some specific ways to lower your chance of stroke are: * If you are a smoker, now is the time to stop smoking cigarettes * If you are diabetic, improve the control of your blood sugars * Avoid excessive amounts of alcohol * Control high blood pressure * Lose weight if you are overweight * Be sure to lead an active lifestyle * Eat a healthy diet low in salt, cholesterol and fat You should know about other risk factors for stroke that you are unable to control. These include: * Age 55 years or older * Male gender * Certain racial groups: , or / * Family History of Stroke, Mini stroke or Heart Attack * Sickle Cell Disease Follow Up: It is important for you to keep your follow up appointments with your medical provider. Who to Call and When: Medical Emergencies: Call 911 immediately if you experience any of the following warning signs and symptoms of Stroke: * Sudden numbness or weakness of the face, arm or leg, especially on one side of the body * Sudden confusion, trouble speaking or understanding * Sudden trouble seeing in one or both eyes * Sudden trouble walking, dizziness, loss of balance or coordination * Sudden severe headache with no cause Do not delay calling 911 if you experience any warning signs or symptoms of a stroke. Delay in seeking medical attention may affect what treatments can be given to you. . Total Time Total Time Spent Total Time Spent (In Minutes): 35 minutes Coding Level of Care Code 10495 INP/OBS DISCH >30 MIN Diagnoses TIA (transient ischemic attack) G45.9 Hyponatremia E87.1 Hypomagnesemia E83.42 HTN (hypertension) I10
[2024-11-30 12:28] VITALS: BP 144/89
[2024-11-30] MEDS ORDERED: CHOLECALCIFEROL 25 MCG (1000 UNITS) TAB PO SCH (16:30)
== END 2024-11-30 14:54 | disposition home or self-care (01) | DRG 69 ==
LOC: SUATTDRO → ED 15:30 → 2S 18:28 → INTOOBSV 18:28 → 2S 20:07

== ENCOUNTER 2024-12-26 06:45 | Observation (INO) ==
--- NOTE | 2024-12-26 07:04 | Emergency Department Note ---
ED Provider Note History of Present Illness Chief Complaint: Abdominal Pain Stated Complaint: ABD PAIN Time Seen by Provider: 12/26/24 07:02 69-year-old female who presents the emergency department with complaint of intermittent severe right upper quadrant abdominal pain. The patient reports that her pain started yesterday afternoon after eating lunch. It then subsided throughout the afternoon. She had a salad and bread last evening for dinner it did not have any significant worsening symptoms. She then had an ice cream before bedtime, and reports severe pain that lasted throughout the night. The patient has noticed food intolerance to fatty foods lately. She denies any known personal or family history of gallbladder disease. She does report that it wraps around into her back as well. She denies any chest pain, shortness of breath or sweatiness. She does have a history of reflux, but reports that this feels different. She has not noticed any change in her stools. She currently rates her discomfort an 8 out of 10, and also has mild nausea without vomiting. Home Medications Medication Instructions Recorded Confirmed Type omeprazole magnesium 20 mg 20 mg PO BID PRN Acid Reflux 01/20/24 12/26/24 History tablet,delayed release (Prilosec OTC) estradiol 1 mg tablet 1 mg PO QPM 11/29/24 12/26/24 History lenvatinib 14 mg/day (10 mg x 1 0 mg PO QPM 11/29/24 12/26/24 History and 4 mg x 1) capsule (Lenvima) valsartan 320 mg tablet 320 mg PO QPM 11/29/24 12/26/24 History atorvastatin 40 mg tablet 40 mg PO QAM #30 tabs 11/30/24 12/26/24 Rx carvedilol 3.125 mg tablet 3.125 mg PO BID #60 tabs 11/30/24 12/26/24 Rx multivitamin 1 tab PO DAILY 12/23/24 12/26/24 History potassium chloride 10 mEq 10 meq PO DAILY 12/23/24 12/26/24 History tablet,extended release sodium chloride 1,000 mg soluble 1,000 mg PO DAILY 12/23/24 12/26/24 History tablet levothyroxine 200 mcg tablet 200 mcg PO DAILY 12/26/24 12/26/24 History levothyroxine 25 mcg tablet 25 mcg PO DAILY 12/26/24 12/26/24 History Allergies Allergy/AdvReac Type Severity Reaction Status Date / Time NSAIDS (Non-Steroidal Allergy Severe ANAPHYLAXIS Verified 12/26/24 08:45 Anti-Inflamma Penicillins Allergy Severe SWELLING Verified 12/26/24 08:45 A CHILD PER HER PARENTS. azithromycin Allergy Intermediate Hives Verified 12/26/24 08:45 chondroitin sulfate A Allergy Intermediate Rash Verified 12/26/24 08:45 [From Osteo Bi-Flex] clindamycin Allergy Intermediate Rash Verified 12/26/24 08:45 glucosamine Allergy Intermediate Rash Verified 12/26/24 08:45 [From Osteo Bi-Flex] prednisone Allergy Intermediate RASH Verified 12/26/24 08:45 strawberry Allergy Intermediate Hives Verified 12/26/24 08:45 albuterol AdvReac Intermediate Tachycardia Verified 12/26/24 08:45 levofloxacin AdvReac Intermediate GI UPSET Verified 12/26/24 08:45 Sulfa (Sulfonamide AdvReac Intermediate Tachycardia Verified 12/26/24 08:45 Antibiotics) sulfadiazine AdvReac Intermediate Abdominal Verified 12/26/24 08:45 Pain sulfamethoxazole AdvReac Intermediate Tachycardia Verified 12/26/24 08:45 tetracycline AdvReac Intermediate Abdominal Verified 12/26/24 08:45 Pain homatropine AdvReac Unknown Unknown Verified 12/26/24 08:45 [From Hycodan (with homatropine)] hydrocodone AdvReac Unknown Unknown Verified 12/26/24 08:45 [From Hycodan (with homatropine)] Past Med/Surg History Problem List (Updated 12/26/24 @ 14:21 by Ryan Cali) Serum total bilirubin elevated (Acute) Transaminitis (Acute) Acute cholecystitis (Acute) Gallstones Acute cholecystitis Abnormal liver enzymes Biliary colic TIA (transient ischemic attack) Hypomagnesemia (Acute) Hypokalemia (Acute) Hyponatremia (Acute) Stroke-like symptoms (Acute) Recurrent thyroid cancer Pulmonary nodule Dry skin dermatitis Pruritus CMC arthritis Capsulitis of metatarsophalangeal (MTP) joint Mass in neck Acid reflux Hypoparathyroidism (Chronic) Vitamin D deficiency (Chronic) Hypothyroidism, postablative (Chronic) Hx of papillary thyroid carcinoma (Chronic) Lumbar spondylosis (Chronic) Lumbar radicular pain (Chronic) Sacroiliitis (Chronic) HTN (hypertension) (Chronic) Medical History Anemia HTN (hypertension) Lumbar spondylosis Hx of papillary thyroid carcinoma 2018; per chart review, had recurrence in 2 nodules anterior neck which were removed 2020 Hypothyroidism Acid reflux Arthritis Hx of dermatitis Pulmonary nodule History of COVID-19 (2022) no hosp; resolved History of postoperative nausea and vomiting History of anesthesia reaction hx elevated bp post op Surgical History History of esophagogastroduodenoscopy (EGD) Hx of colonoscopy History of foot surgery left History of appendectomy H/O thumb surgery H/O hernia repair Hx of tonsillectomy H/O: hysterectomy H/O thyroidectomy 2017 Family History Sister Hypothyroidism Mother Hearing loss Hypertension Asthma Father Cancer Brother Allergies Other No family history of adverse response to anesthesia No family history of bleeding disorder Social History Smoking Status: Former smoker Tobacco Type: Cigarettes Age Started Using Tobacco: 36; Age Quit Using Tobacco: 38; packs per day: 0.5; Second Hand Exposure: No; Do You Dip or Chew Tobacco: No; Hx Alcohol Use: Yes Alcohol type: beer Alcohol type Comment: 5 Hx Substance Use: No Preferred Language: Nauruan Communication Ability: Effective Visual Impairment: No Limitations Hearing Ability: Normal Corporate Human Resources Manager Required: No Beliefs That Will Affect Care: None marital status: Current Living Situation: Significant Other current occupational status: employed 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 [employer] Feels Safe at Home: Yes Assistive Devices: Glasses Physical Exam Vital Signs Vital Signs - 24 hr 12/26/24 06:50 12/26/24 07:11 12/26/24 07:26 Temperature 36.4 C L Temperature Source Temporal Artery Scan Pulse Rate 86 Pulse Rate [Apical] 77 Pulse Rate from SpO2 Sensor Respiratory Rate 20 19 Respiratory Effort / Characteristics Non-Labored Spontaneous Non-Labored Spontaneous Respiratory Depth Normal Normal Blood Pressure 241/132 H Blood Pressure [Right Arm] 233/124 H Blood Pressure Mean 168 Blood Pressure Mean [Right Arm] 160 Blood Pressure Position [Right Arm] Semi-fowlers Pulse Oximetry 97 99 100 Oxygen Delivery Method Room Air Room Air Room Air Sepsis Recent Fever Within 48 Hours No Sepsis New/Unexplained Change in Mental Status N/A Sepsis Action Taken by Nursing No Action Required 12/26/24 07:28 12/26/24 07:40 12/26/24 08:32 Temperature Temperature Source Pulse Rate 77 81 Pulse Rate [Apical] Pulse Rate from SpO2 Sensor Respiratory Rate Respiratory Effort / Characteristics Respiratory Depth Blood Pressure 233/124 H 158/82 H Blood Pressure [Right Arm] Blood Pressure Mean 97 Blood Pressure Mean [Right Arm] Blood Pressure Position [Right Arm] Pulse Oximetry Oxygen Delivery Method Sepsis Recent Fever Within 48 Hours Sepsis New/Unexplained Change in Mental Status Sepsis Action Taken by Nursing 12/26/24 08:59 12/26/24 09:00 12/26/24 11:00 Temperature Temperature Source Pulse Rate 65 Pulse Rate [Apical] 65 Pulse Rate from SpO2 Sensor Respiratory Rate 13 11 L Respiratory Effort / Characteristics Non-Labored Spontaneous Respiratory Depth Normal Blood Pressure 158/82 H 161/92 H Blood Pressure [Right Arm] 154/97 H Blood Pressure Mean 126 Blood Pressure Mean [Right Arm] 116 Blood Pressure Position [Right Arm] Semi-fowlers Pulse Oximetry 94 95 Oxygen Delivery Method Room Air Sepsis Recent Fever Within 48 Hours Sepsis New/Unexplained Change in Mental Status Sepsis Action Taken by Nursing 12/26/24 11:21 Temperature Temperature Source Pulse Rate 65 Pulse Rate [Apical] Pulse Rate from SpO2 Sensor 65 Respiratory Rate 15 Respiratory Effort / Characteristics Respiratory Depth Blood Pressure Blood Pressure [Right Arm] Blood Pressure Mean Blood Pressure Mean [Right Arm] Blood Pressure Position [Right Arm] Pulse Oximetry 96 Oxygen Delivery Method Sepsis Recent Fever Within 48 Hours Sepsis New/Unexplained Change in Mental Status Sepsis Action Taken by Nursing CONSTITUTIONAL: Healthy and well nourished. Patient appears in moderate discomfort. HEENT: No scleral icterus or conjunctival injection. Mucous membranes are dry. NECK: No JVD or carotid bruits appreciated. RESPIRATORY: Clear to auscultation bilaterally with no wheezing, crackles, rhonchi or stridor. CARDIOVASCULAR: Regular rate and rhythm with no murmurs, rubs or gallops. GASTROINTESTINAL: Bowel sounds present in all quadrants. Patient has notable right upper quadrant tenderness to palpation. No obvious rigidity. Positive Jacques sign. Negative CVA tenderness. MUSCULOSKELETAL: Full range of motion of all joints without discomfort. INTEGUMENTARY: No rash or other significant dermatologic conditions noted. HEMATOLOGIC: No ecchymosis or petechiae. PSYCHIATRIC: Positive affect. NEUROLOGIC: No focal neurologic deficits noted. Course Course Patient history and physical exam were performed. Nursing notes were reviewed. Vital signs are reviewed, showing significantly elevated blood pressure of 241/132. The patient notes that she did not take her blood pressure medicine this morning, and does have a history of high blood pressure. IV access was established, and labs were ordered and drawn. The patient was administered IV labetalol, Dilaudid and Zofran. Patient was also hydrated with a liter normal saline bolus. An ECG was performed and was normal. While awaiting additional workup, review of outpatient records shows that the patient did have a CT of the chest, abdomen and pelvis performed 4 days ago as part of a thyroid cancer surveillance. Imaging showed that the gallbladder had adjacent pericholecystic stranding that the radiologist felt was similar to a prior 2 cm enhancing left hepatic lobe lesion, suggestive of a hemangioma. Review of labs shows a mild leukopenia with normal platelet count and no neutrophilic shift. CMP shows mildly elevated total bilirubin, as well as elevated LFTs and alkaline phosphatase. Lipase is normal. Urinalysis does not show evidence for hematuria or signs of infection. Gallbladder ultrasound was performed, showing minimal dilation of the pancreatic duct measuring 3 mm. Common bile duct, however, is dilated measuring 9 mm, as is the gallbladder, gallbladder wall and gallbladder sludge versus layering tiny gallstones. No pericholecystic fluid or ascites is appreciated. The patient was advised of her ultrasound findings. I did indicate that I would reach out to general surgery as well. The case was also discussed with Dr. Ruggiero, ED attending physician. Dr. Velazquez was paged, and there was a long delay until I discussed the case with him, as he was in the OR. Dr. Velazquez did review the case, and recommended hospitalist admission with GI consultation for ERCP procedure. I then reached out to Dr. Tobin, stubber on-call, who has requested an MRCP. The case was discussed with the [facility] hospitalist service (Dr. Smart) who will order the MRCP. Please see hospitalist, general surgery and stubber dictations for further treatment and final disposition. The patient refused any additional analgesics or antiemetics prior to transfer of care to the hospitalist service. As indicated previously, the case was also discussed with Dr. Ruggiero, ED attending physician, who agrees with workup and plan admission. Administered Medications Potassium Chloride/Dextrose/Sod Cl (D5nss + 20meq Kcl) 20 meq in 1,000 mls @ 125 mls/hr IV .Q8H MASON Stop: 12/29/24 13:29 Last Admin: 12/26/24 14:08 Dose: 125 mls/hr Documented By: HO Levofloxacin/Dextrose (Levaquin/D5w) 750 mg in 150 mls @ 100 mls/hr IV Q24H MASON; Protocol Stop: 12/30/24 14:59 Last Admin: 12/26/24 15:17 Dose: 100 mls/hr Documented By: HO Metronidazole (Flagyl) 500 mg in 100 mls @ 100 mls/hr IV Q8H MASON; Protocol Stop: 12/30/24 14:59 Last Admin: 12/26/24 15:17 Dose: 100 mls/hr Documented By: HO Discontinued Medications Carvedilol (Carvedilol 3.125 Mg Tab) 3.125 mg PO NOW ONE Stop: 12/26/24 14:51 Last Admin: 12/26/24 15:11 Dose: 3.125 mg Documented By: HO Hydromorphone HCl (Hydromorphone Inj 0.5 Mg/0.5 Ml Syr) 0.5 mg IV NOW STA Stop: 12/26/24 07:13 Last Admin: 12/26/24 07:28 Dose: 0.5 mg Documented By: NALLELY Labetalol HCl (Labetalol Hcl Iv 5 Mg/Ml 20ml) 10 mg IV NOW STA Stop: 12/26/24 07:13 Last Admin: 12/26/24 07:28 Dose: 10 mg Documented By: NALLELY Ondansetron HCl (Ondansetron Inj 2 Mg/Ml 2 Ml Vial) 4 mg IV NOW STA Stop: 12/26/24 07:13 Last Admin: 12/26/24 07:28 Dose: 4 mg Documented By: NALLELY Ondansetron HCl (Ondansetron Inj 2 Mg/Ml 2 Ml Vial) 4 mg IV NOW STA Stop: 12/26/24 09:12 Last Admin: 12/26/24 09:22 Dose: 4 mg Documented By: NALLELY Medical Decision Making Medical Records Attestation: I reviewed the patient's medical records. Home Medications was personally reviewed by me Laboratory Data Attestation: I reviewed the patient's lab results. 12/26/24 07:21 12/26/24 07:21 Lab Results 12/26/24 12/26/24 Range/Units 07:21 07:33 WBC 3.89 L (4.8-10.8) K/ul RBC 3.38 L (4.20-5.40) M/uL Hgb 11.8 L (12.0-16.0) g/dl Hct 33.7 L (37.0-47.0) % MCV 99.7 (80.0-100.0) fL MCH 34.9 H (25.0-34.0) pg MCHC 35.0 (32.0-36.0) g/dL RDW Std Deviation 49.2 H (36.4-46.3) fL RDW Coeff of Cindi 13.6 (11.5-14.5) % Plt Count 174 (130-400) K/uL MPV 10.7 (9.4-12.4) fL Immature Gran % (Auto) 0.3 % Neut % (Auto) 66.3 % Lymph % (Auto) 20.1 % [place] % (Auto) 11.8 % Eos % (Auto) 1.0 % Baso % (Auto) 0.5 % Neut # (Auto) 2.58 (1.40-6.50) K/uL Lymph # (Auto) 0.78 L (1.20-3.40) K/uL [place] # (Auto) 0.46 (0.11-0.59) K/uL Eos # (Auto) 0.04 (0.00-0.50) K/uL Baso # (Auto) 0.02 (0.00-0.20) K/uL Immature Gran # (Auto) 0.01 (0.01-0.20) K/uL Sodium 137 (136-145) mmol/L Potassium 3.5 (3.5-5.1) mmol/L Chloride 101 (98-107) mmol/L Carbon Dioxide 27 (21-32) mmol/L Anion Gap 9 (3-11) BUN 4 L (6-23) mg/dl Creatinine 0.42 L (0.6-1.2) mg/dl Est Cr Clr Drug Dosing 110.6 ml/min eGFR 104.51 BUN/Creatinine Ratio 9.5 L (10-20) Glucose 119 H (70-99(Fasting)) mg/dl Calcium 8.8 (8.6-10.3) mg/dl Total Bilirubin 1.2 H (0.2-1.0) mg/dl AST 238 H (13-39) U/L ALT 157 H (7-52) U/L Alkaline Phosphatase 464 H (34-104) U/L Troponin I High Sens 9.6 (0-14) pg/ml Total Protein 6.3 (6.0-8.3) gm/dl Albumin 3.8 (3.4-5.0) gm/dl Globulin 2.5 (2.5-4.0) gm/dl Albumin/Globulin Ratio 1.5 (0.9-2) Lipase 28 (11-82) U/L Urine Color Yellow Urine Appearance Clear (Clear) Urine pH 8.5 H (4.5-7.5) Ur Specific [place] 1.004 (1.000-1.030) Urine Protein Negative (Negative) Urine Glucose (UA) Negative (Negative) Urine Ketones Negative (Negative) Urine Blood Negative (Negative) Urine Nitrite Negative (Negative) Urine Bilirubin Negative (Negative) Urine Urobilinogen Negative (Negative) Ur Leukocyte Esterase Negative (Negative) Urine Comment Imaging Data Attestation: I personally reviewed and interpreted this imaging study as follows: My Impression: My interpretation of a portable chest x-ray does not show any consolidations, pneumothorax or cardiomegaly. My interpretation of a gallbladder ultrasound shows possible mild gallbladder wall thickening and, bile duct dilatation. No obvious pericholecystic fluid appreciated. Radiologist reports were otherwise reviewed with concurrence. Radiologist's Impression: Chest X-Ray 12/26/24 07:13 EXAM: XR chest 1V portable CLINICAL HISTORY: RUQ abd pain TECHNIQUE: An X-ray image of the chest is obtained in 1 AP projection. COMPARISON: Comparing to prior chest CT on 12/22/2024 FINDINGS: Pulmonary Parenchyma: Stable peripheral fine reticulations. No evidence of consolidation, collapse, or focal opacities. No pulmonary nodules are identified. No evidence of pleural effusion or pleural thickening. Heart and Mediastinum: Heart size and shape are normal. No mediastinal widening or masses. No hilar or mediastinal lymphadenopathy. Bony Thorax: Bony thorax appears intact without fractures or deformities. Soft Tissues: Soft tissues overlying the chest wall are unremarkable. IMPRESSION: 1. Compared to the prior chest CT on 12/22/2024. 2. No acute cardiopulmonary abnormalities are identified. Electronically signed by Toni Jensen 12-26-2024 09:04 AM Gallbladder Ultrasound 12/26/24 07:13 US gallbladder CLINICAL HISTORY: RUQ abd pain COMPARISON STUDY: CT of 12/22/2024 FINDINGS: Pancreatic tail is obscured. There is minimal dilatation of the pancreatic duct measuring 3 mm diameter. Otherwise the visualized pancreatic body is grossly unremarkable. There is normal direction of flow in the portal vein. There is a 2.5 cm patchy echogenic finding in the left hepatic lobe which correlates with the hemangioma seen on the CT. Otherwise the liver is unremarkable measuring 14 cm. Common bile duct is dilated measuring 9 mm diameter. Gallbladder is mildly dilated. Gallbladder wall is mildly thickened measuring 4 mm thickness. There is a small amount of gallbladder sludge versus layering tiny gallstones. No pericholecystic fluid or ascites. Right kidney shows no hydronephrosis. IMPRESSION: 1. Appearance of the gallbladder could represent early acute cholecystitis. 2. Mild distention of the common bile duct. 3. Otherwise as described. ACT 112: Negative or not required by law. Electronically signed by: Willian Nichols M.D. 12/26/2024 8:38 AM ECG Data Attestation: I personally reviewed and interpreted this ECG as follows: Indication: + abdominal pain Rate (beats per minute): 81 Rhythm: + normal sinus ECG Intervals/blocks: + Normal QRS, + Normal QT and + Normal IL ECG [place]: + Normal ECG ST segments: + Normal ST segments Comparison ECG Date: from (04/06/2024) Change: no significant change MDM Narrative See ED Course section for further details of today's visit. The patient presents with complaint of right upper quadrant pain that started yesterday afternoon, and progressively worsened last night after eating ice cream. It is noted that the patient did have a recent CT of the chest, abdomen and pelvis, showing some possible pericholecystic fluid around the gallbladder. Given her current presenting symptoms, gallbladder ultrasound was performed, suggestive of an early acute cholecystitis. Laboratory studies are also consistent with this with liver transaminitis, elevated total bilirubin and alkaline phosphatase. Additional lab work is not suggestive of pancreatitis. Chest x-ray and ECG are not suggestive of acute cardiopulmonary etiologies. Troponin is also normal. The case was discussed with our Director [facility], attending physician, hospitalist, general surgeon and stubber, who will perform further workup, possibly MRCP to rule out choledocholithiasis. Patient did receive adequate pain control while under my care in the emergency department. As indicated previously, the case was also discussed with Dr. Ruggiero, ED attending physician, who agrees with workup and plan admission. Impression Acute cholecystitis, Transaminitis, Serum total bilirubin elevated Discharge Plan Visit Data Chief Complaint: Abdominal Pain Stated Complaint: ABD PAIN ED Provider: Bret Ruggiero ED Midlevel Provider: Ryan Cali Discharge Problem: Acute cholecystitis, Transaminitis, Serum total bilirubin elevated Patient Disposition: Admitted As Inpatient Condition: Fair Discharge Instructions Interventions: ED Discharge Assessment Last Done: 12/26/24 12:04 ED DC CONDITION Conditon at Discharge Condition at Discharge: Good
[2024-12-26] MEDS: ONDANSETRON INJ 2 MG/ML 2 ML VIAL IV STA ×2 (07:28→09:22)
[2024-12-26] MEDS: LABETALOL HCL IV 5 MG/ML 20ML IV STA (07:28)
[2024-12-26] MEDS: HYDROmorphone INJ 0.5 MG/0.5 ML SYR IV STA (07:28)
[2024-12-26 07:55] LABS: Alanine Aminotransferase 157.0 U/L (7-52); Albumin Globulin Ratio 1.5 (0.9-2); Alkaline Phosphatase 464.0 U/L (34-104); Anion Gap 9.0 (3-11); Bilirubin,Total 1.2 mg/dl (0.2-1.0); Blood Urea Nitrogen 4.0 mg/dl (6-23); Calcium 8.8 mg/dl (8.6-10.3); Carbon Dioxide 27.0 mmol/L (21-32); Chloride 101.0 mmol/L (98-107); Creatinine Clr Calc Pharmacy 110.6 ml/min; Globulin 2.5 gm/dl (2.5-4.0); Glucose 119.0 mg/dl (70-99(Fasting)); Lipase 28.0 U/L (11-82); Potassium 3.5 mmol/L (3.5-5.1); Sodium 137.0 mmol/L (136-145); Total Protein 6.3 gm/dl (6.0-8.3)
[2024-12-26 08:26] LABS: Hematocrit (blood only) 33.7 % (37.0-47.0); Hemoglobin 11.8 g/dl (12.0-16.0); Immature Granulocytes # (auto) 0.01 K/uL (0.01-0.20); Immature Granulocytes % (auto) 0.3 %; Mean Corpuscular Hemoglobin 34.9 pg (25.0-34.0); Mean Corpuscular Volume 99.7 fL (80.0-100.0); Platelet Count 174 K/uL (130-400); RDW Standard Deviation 49.2 fL (36.4-46.3); Red Blood Count 3.38 M/uL (4.20-5.40); White Blood Count 3.89 K/ul (4.8-10.8)
[2024-12-26 08:40] LABS: Appearance Urine Clear (Clear); Glucose Urine UA Negative (Negative)
--- NOTE | 2024-12-26 08:40 | Ultrasound Report ---
US gallbladder CLINICAL HISTORY: RUQ abd pain COMPARISON STUDY: CT of 12/22/2024 FINDINGS: Pancreatic tail is obscured. There is minimal dilatation of the pancreatic duct measuring 3 mm diameter. Otherwise the visualized pancreatic body is grossly unremarkable. There is normal direc tion of flow in the portal vein. There is a 2.5 cm patchy echogenic finding in the left hepatic lobe which correlates with the hemangioma seen on the CT. Otherwise the liver is unremarkable measuring 14 cm. Common bile duct is dilated measuring 9 mm diameter. Gallbladder is mildly dilated. Gallbladder wall is mildly thickened measuring 4 mm thickness. There is a small amount of gallbladder sludge vers us layering tiny gallstones. No pericholecystic fluid or ascites. Right kidney shows no hydronephrosi s. IMPRESSION: 1. Appearance of the gallbladder could represent early acute cholecystitis. 2. Mild distention of the common bile duct. 3. Otherwise as described. ACT 112: Negative or not required by law. Electronically signed by: Willian Nihcols M.D. 12/26/2024 8:38 AM
--- NOTE | 2024-12-26 09:04 | XRay Report ---
EXAM: XR chest 1V portable CLINICAL HISTORY: RUQ abd pain TECHNIQUE: An X-ray image of the chest is obtained in 1 AP projection. COMPARISON: Comparing to prior chest CT on 12/22/2024 FINDINGS: Pulmonary Parenchyma: Stable peripheral fine reticulations. No evidence of consolidation, collapse, or focal opacities. No pulmonary nodules are identified. No evidence of pleural effusion or pleural thickening. Heart and Mediastinum: Heart size and shape are normal. No mediastinal widening or masses. No hilar or mediastinal lymphadenopathy. Bony Thorax: Bony thorax appears intact without fractures or deformities. Soft Tissues: Soft tissues overlying the chest wall are unremarkable. IMPRESSION: 1. Compared to the prior chest CT on 12/22/2024. 2. No acute cardiopulmonary abnormalities are identified. Electronically signed by Toni Jensen 12-26-2024 09:04 AM
--- NOTE | 2024-12-26 11:00 | Gastrointestinal Consultation ---
Date of Consultation December 26, 2024 Assessment & Plan (1) Biliary colic: Pain is consistent with biliary colic need to consider acute cholecystitis, choledocholithiasis as well. Agree with admission. Surgical consult. Empiric antibiotic coverage. (2) Abnormal liver enzymes: Abnormal liver tests could be secondary to choledocholithiasis, Mirizzi syndrome less likely hepatocellular liver disease. Recommend MRI MRCP. Possible ERCP in a.m. pending MRI results. History of Present Illness Reason for Consultation: Abdominal pain abnormal liver enzymes History of Present Illness Patient presents with several day history of recurrent upper abdominal right- sided abdominal pain that is moderate to severe steady worse with eating with radiation to her back. She denies nausea or vomiting or change in bowel habits. She has longstanding history of functional bowel disorder characterized by constipation and occasional crampy abdominal pain. She has a past history of thyroid cancer status post thyroidectomy. Recent recurrence in her lung which is being treated. She denies any fever chills dark urine or jaundice. She is allergic to penicillin and NSAIDs. Allergies Allergy/AdvReac Type Severity Reaction Status Date / Time NSAIDS (Non-Steroidal Allergy Severe ANAPHYLAXIS Verified 12/26/24 08:45 Anti-Inflamma Penicillins Allergy Severe SWELLING Verified 12/26/24 08:45 A CHILD PER HER PARENTS. azithromycin Allergy Intermediate Hives Verified 12/26/24 08:45 chondroitin sulfate A Allergy Intermediate Rash Verified 12/26/24 08:45 [From Osteo Bi-Flex] clindamycin Allergy Intermediate Rash Verified 12/26/24 08:45 glucosamine Allergy Intermediate Rash Verified 12/26/24 08:45 [From Osteo Bi-Flex] prednisone Allergy Intermediate RASH Verified 12/26/24 08:45 strawberry Allergy Intermediate Hives Verified 12/26/24 08:45 albuterol AdvReac Intermediate Tachycardia Verified 12/26/24 08:45 levofloxacin AdvReac Intermediate GI UPSET Verified 12/26/24 08:45 Sulfa (Sulfonamide AdvReac Intermediate Tachycardia Verified 12/26/24 08:45 Antibiotics) sulfadiazine AdvReac Intermediate Abdominal Verified 12/26/24 08:45 Pain sulfamethoxazole AdvReac Intermediate Tachycardia Verified 12/26/24 08:45 tetracycline AdvReac Intermediate Abdominal Verified 12/26/24 08:45 Pain homatropine AdvReac Unknown Unknown Verified 12/26/24 08:45 [From Hycodan (with homatropine)] hydrocodone AdvReac Unknown Unknown Verified 12/26/24 08:45 [From Hycodan (with homatropine)] Home Medications Medication Instructions Recorded Confirmed Type omeprazole magnesium 20 mg 20 mg PO BID PRN Acid Reflux 01/20/24 12/26/24 History tablet,delayed release (Prilosec OTC) estradiol 1 mg tablet 1 mg PO QPM 11/29/24 12/26/24 History lenvatinib 14 mg/day (10 mg x 1 0 mg PO QPM 11/29/24 12/26/24 History and 4 mg x 1) capsule (Lenvima) valsartan 320 mg tablet 320 mg PO QPM 11/29/24 12/26/24 History atorvastatin 40 mg tablet 40 mg PO QAM #30 tabs 11/30/24 12/26/24 Rx carvedilol 3.125 mg tablet 3.125 mg PO BID #60 tabs 11/30/24 12/26/24 Rx multivitamin 1 tab PO DAILY 12/23/24 12/26/24 History potassium chloride 10 mEq 10 meq PO DAILY 12/23/24 12/26/24 History tablet,extended release sodium chloride 1,000 mg soluble 1,000 mg PO DAILY 12/23/24 12/26/24 History tablet levothyroxine 200 mcg tablet 200 mcg PO DAILY 12/26/24 12/26/24 History levothyroxine 25 mcg tablet 25 mcg PO DAILY 12/26/24 12/26/24 History Patient History Medical History Anemia HTN (hypertension) Lumbar spondylosis Hx of papillary thyroid carcinoma 2017; per chart review, had recurrence in 2 nodules anterior neck which were removed 2020 Hypothyroidism Acid reflux Arthritis Hx of dermatitis Pulmonary nodule History of COVID-19 (2022) no hosp; resolved History of postoperative nausea and vomiting History of anesthesia reaction hx elevated bp post op Surgical History History of esophagogastroduodenoscopy (EGD) Hx of colonoscopy History of foot surgery left History of appendectomy H/O thumb surgery H/O hernia repair Hx of tonsillectomy H/O: hysterectomy H/O thyroidectomy 2018 Family History Sister Hypothyroidism Mother Hearing loss Hypertension Asthma Father Cancer Brother Allergies Other No family history of adverse response to anesthesia No family history of bleeding disorder Social History Smoking Status: Former smoker Tobacco Type: Cigarettes Age Started Using Tobacco: 36; Age Quit Using Tobacco: 38; packs per day: 0.5; Second Hand Exposure: No; Hx Alcohol Use: Yes Alcohol type: beer Alcohol type Comment: 5 Hx Substance Use: No Preferred Language: Bulgarian Communication Ability: Effective Visual Impairment: No Limitations Hearing Ability: Normal Flap Curer Required: No Beliefs That Will Affect Care: None marital status: Current Living Situation: Significant Other current occupational status: employed 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 [employer] Feels Safe at Home: Yes Assistive Devices: Glasses Review of Systems Review of Systems: No fever No chills No SOB No CP GI as per history of HPI Physical Exam Physical Exam: Eyes; anicteric HENT No masses Chest clear to A Cor S1, S2 physiologic Abd: softer mild right upper quadrant tenderness no rebound no guarding Ext no edema Results & Data Vital Signs (Past 12 Hours) Vital Signs Temp Pulse Pulse Resp BP BP Pulse Ox 12/26/24 09:00 65 13 154/97 H 94 12/26/24 08:59 158/82 H 12/26/24 08:32 158/82 H 12/26/24 07:40 81 12/26/24 07:28 77 233/124 H 12/26/24 07:26 100 12/26/24 07:11 77 19 233/124 H 99 12/26/24 06:50 36.4 C L 86 20 241/132 H 97 O2 Del Method 12/26/24 09:00 Room Air 12/26/24 08:59 12/26/24 08:32 12/26/24 07:40 12/26/24 07:28 12/26/24 07:26 Room Air 12/26/24 07:11 Room Air 12/26/24 06:50 Room Air Laboratory Results Laboratory Results - last 48 hr 12/26/24 12/26/24 07:21 07:33 WBC 3.89 L RBC 3.38 L Hgb 11.8 L Hct 33.7 L MCV 99.7 MCH 34.9 H MCHC 35.0 RDW Std Deviation 49.2 H RDW Coeff of Cindi 13.6 Plt Count 174 MPV 10.7 Immature Gran % (Auto) 0.3 Neut % (Auto) 66.3 Lymph % (Auto) 20.1 Crawford % (Auto) 11.8 Eos % (Auto) 1.0 Baso % (Auto) 0.5 Neut # (Auto) 2.58 Lymph # (Auto) 0.78 L Crawford # (Auto) 0.46 Eos # (Auto) 0.04 Baso # (Auto) 0.02 Immature Gran # (Auto) 0.01 Sodium 137 Potassium 3.5 Chloride 101 Carbon Dioxide 27 Anion Gap 9 BUN 4 L Creatinine 0.42 L Est Cr Clr Drug Dosing 110.6 eGFR 104.51 BUN/Creatinine Ratio 9.5 L Glucose 119 H Calcium 8.8 Total Bilirubin 1.2 H AST 238 H ALT 157 H Alkaline Phosphatase 464 H Troponin I High Sens 9.6 Total Protein 6.3 Albumin 3.8 Globulin 2.5 Albumin/Globulin Ratio 1.5 Lipase 28 Urine Color Yellow Urine Appearance Clear Urine pH 8.5 H Ur Specific Dubois 1.004 Urine Protein Negative Urine Glucose (UA) Negative Urine Ketones Negative Urine Blood Negative Urine Nitrite Negative Urine Bilirubin Negative Urine Urobilinogen Negative Ur Leukocyte Esterase Negative Urine Comment Diagnostic Findings Chest X-Ray 12/26/24 07:13 EXAM: XR chest 1V portable CLINICAL HISTORY: RUQ abd pain TECHNIQUE: An X-ray image of the chest is obtained in 1 AP projection. COMPARISON: Comparing to prior chest CT on 12/22/2024 FINDINGS: Pulmonary Parenchyma: Stable peripheral fine reticulations. No evidence of consolidation, collapse, or focal opacities. No pulmonary nodules are identified. No evidence of pleural effusion or pleural thickening. Heart and Mediastinum: Heart size and shape are normal. No mediastinal widening or masses. No hilar or mediastinal lymphadenopathy. Bony Thorax: Bony thorax appears intact without fractures or deformities. Soft Tissues: Soft tissues overlying the chest wall are unremarkable. IMPRESSION: 1. Compared to the prior chest CT on 12/22/2024. 2. No acute cardiopulmonary abnormalities are identified. Electronically signed by Toni Jensen 12-26-2024 09:04 AM Gallbladder Ultrasound 12/26/24 07:13 US gallbladder CLINICAL HISTORY: RUQ abd pain COMPARISON STUDY: CT of 12/22/2024 FINDINGS: Pancreatic tail is obscured. There is minimal dilatation of the pancreatic duct measuring 3 mm diameter. Otherwise the visualized pancreatic body is grossly unremarkable. There is normal direction of flow in the portal vein. There is a 2.5 cm patchy echogenic finding in the left hepatic lobe which correlates with the hemangioma seen on the CT. Otherwise the liver is unremarkable measuring 14 cm. Common bile duct is dilated measuring 9 mm diameter. Gallbladder is mildly dilated. Gallbladder wall is mildly thickened measuring 4 mm thickness. There is a small amount of gallbladder sludge versus layering tiny gallstones. No pericholecystic fluid or ascites. Right kidney shows no hydronephrosis. IMPRESSION: 1. Appearance of the gallbladder could represent early acute cholecystitis. 2. Mild distention of the common bile duct. 3. Otherwise as described. ACT 112: Negative or not required by law. Electronically signed by: Willian Nichols M.D. 12/26/2024 8:38 AM PG Care Time/CCT Total # of Minutes Spent Total Time Spent with Patient: Total time spent is greater than 50% in coordination of care (as documented) at patient's floor/unit and/or counseling patient: Coding Level of Care Code 82790 INT INP/OBS CARE 2/55MIN Diagnoses Biliary colic K80.50 Abnormal liver enzymes R74.8
--- NOTE | 2024-12-26 11:10 | History & Physical Report ---
Date of Service December 26, 2024 Assessment & Plan (1) Acute cholecystitis: (2) Hypokalemia: (3) Papillary thyroid carcinoma: (4) Hypoparathyroidism: (5) HTN (hypertension): Plan 69 y/o woman with metastatic thyroid cancer and hypertension who is admitted with acute cholecystitis she has right upper quadrant tenderness, elevated LFTs in a cholestatic pattern appearance consistent with early cholecystitis on gallbladder ultrasound with mild common bile duct distention General Surgery and gastroenterology have consulted. MRCP was recommended which was obtained this afternoon and showed possible early acute cholecystitis, minimally dilated common bile duct with no common bile duct stone seen. # Acute cholecystitis - started levofloxacin and metronidazole ( penicillin allergic) - IV fluids, n.p.o.. IV antiemetics and opioids as needed for pain control - a.m. CMP and CBC - anticipate lap sunil. if LFTs rising may need ERCP first there are no medical contradicted occasions to proceeding with ERCP or lap sunil as planned, which are urgent and necessary procedures for this condition. she does not have any angina or evidence of heart failure. Her EKG is sinus rhythm there are some inferior Q waves present, these are new since 2023 however I do not see an EKG from this November. I reviewed a recent TTE from November 30 of this year which shows normal LV systolic function, no RWMA's, borderline concentric LVH. # recurrent papillary thyroid carcinoma metastatic to the lung - she is on oral lenvatinib which is held. She is mildly leukopenic but neutrophil count is normal - subacute diarrhea and leg edema have been attributed to this # subacute diarrhea with light-colored stools - potentially related to gallbladder dysfunction - check stool BioFire and C. difficile Imodium as needed # surgical hypothyroidism, hyperparathyroidism TSH/T4 was recently well-controlled. Continue levothyroxine 225 mcg daily # chronic hyponatremiasodium 135 on presentation # hypokalemia # hypomagnesemia - maintenance fluids with IV D5 NS with 20 mill equivalents of potassium - continue salt tabs when taking p.o. - check serial magnesium and BMP # recent TIA in November - continue anti- hypertensives and statin, she is intolerant of aspirin because of allergy and the Plavix has a significant drug interaction with her cancer treatment thus she is not on an antiplatelet agent # hypertensioncontinue valsartan and carvedilol. One-time small dose of carvedilol given this afternoon for hypertension, having missed her a.m. meds. BP improved DVT prophylaxisSCDs for now, avoiding chemoprophylaxis because that she will either need ERCP or surgery soon. postop per surgeon History of Present Illness Chief Complaint: abdominal pain Primary Care Provider: Anita Germain 69 y/o woman with metastatic thyroid cancer and hypertension who came to ED with RUQ abdominal pain. she has been having intermittent right upper quadrant pain after eating for quite a while however no prolonged/severe episodes. Yesterday afternoon she began to have right upper quadrant abdominal pain, she ate ice cream in the evening which made it worse. pain did not improve so she sought evaluation in the emergency department today. She has had some nausea but no vomiting. She has had subacute to chronic diarrhea over the past few months with light or james colored stools. She denies any antibiotics in the last several months. She states that she has been losing weight recently because of the diarrhea and her cancer and chemotherapy. she noticed some chills this morning but has been afebrile since presenting to the ED. currently she has some mild pain in the right upper quadrant but it is well-controlled on The medications given. Allergies Allergy/AdvReac Type Severity Reaction Status Date / Time NSAIDS (Non-Steroidal Allergy Severe ANAPHYLAXIS Verified 12/26/24 08:45 Anti-Inflamma Penicillins Allergy Severe SWELLING Verified 12/26/24 08:45 A CHILD PER HER PARENTS. azithromycin Allergy Intermediate Hives Verified 12/26/24 08:45 chondroitin sulfate A Allergy Intermediate Rash Verified 12/26/24 08:45 [From Osteo Bi-Flex] clindamycin Allergy Intermediate Rash Verified 12/26/24 08:45 glucosamine Allergy Intermediate Rash Verified 12/26/24 08:45 [From Osteo Bi-Flex] prednisone Allergy Intermediate RASH Verified 12/26/24 08:45 strawberry Allergy Intermediate Hives Verified 12/26/24 08:45 albuterol AdvReac Intermediate Tachycardia Verified 12/26/24 08:45 levofloxacin AdvReac Intermediate GI UPSET Verified 12/26/24 08:45 Sulfa (Sulfonamide AdvReac Intermediate Tachycardia Verified 12/26/24 08:45 Antibiotics) sulfadiazine AdvReac Intermediate Abdominal Verified 12/26/24 08:45 Pain sulfamethoxazole AdvReac Intermediate Tachycardia Verified 12/26/24 08:45 tetracycline AdvReac Intermediate Abdominal Verified 12/26/24 08:45 Pain homatropine AdvReac Unknown Unknown Verified 12/26/24 08:45 [From Hycodan (with homatropine)] hydrocodone AdvReac Unknown Unknown Verified 12/26/24 08:45 [From Hycodan (with homatropine)] Home Medications Medication Instructions Recorded Confirmed Type omeprazole magnesium 20 mg 20 mg PO BID PRN Acid Reflux 01/20/24 12/26/24 History tablet,delayed release (Prilosec OTC) estradiol 1 mg tablet 1 mg PO QPM 11/29/24 12/26/24 History lenvatinib 14 mg/day (10 mg x 1 0 mg PO QPM 11/29/24 12/26/24 History and 4 mg x 1) capsule (Lenvima) valsartan 320 mg tablet 320 mg PO QPM 11/29/24 12/26/24 History atorvastatin 40 mg tablet 40 mg PO QAM #30 tabs 11/30/24 12/26/24 Rx carvedilol 3.125 mg tablet 3.125 mg PO BID #60 tabs 11/30/24 12/26/24 Rx multivitamin 1 tab PO DAILY 12/23/24 12/26/24 History potassium chloride 10 mEq 10 meq PO DAILY 12/23/24 12/26/24 History tablet,extended release sodium chloride 1,000 mg soluble 1,000 mg PO DAILY 12/23/24 12/26/24 History tablet levothyroxine 200 mcg tablet 200 mcg PO DAILY 12/26/24 12/26/24 History levothyroxine 25 mcg tablet 25 mcg PO DAILY 12/26/24 12/26/24 History Past Med/Surg History Problem List (Updated 12/26/24 @ 18:47 by Karine Smart MD) Papillary thyroid carcinoma Serum total bilirubin elevated (Acute) Transaminitis (Acute) Acute cholecystitis (Acute) Gallstones Acute cholecystitis Abnormal liver enzymes Biliary colic TIA (transient ischemic attack) Hypomagnesemia (Acute) Hypokalemia (Acute) Hyponatremia (Acute) Stroke-like symptoms (Acute) Recurrent thyroid cancer Pulmonary nodule Dry skin dermatitis Pruritus CMC arthritis Capsulitis of metatarsophalangeal (MTP) joint Mass in neck Acid reflux Hypoparathyroidism (Chronic) Vitamin D deficiency (Chronic) Hypothyroidism, postablative (Chronic) Hx of papillary thyroid carcinoma (Chronic) Lumbar spondylosis (Chronic) Lumbar radicular pain (Chronic) Sacroiliitis (Chronic) HTN (hypertension) (Chronic) Medical History Anemia HTN (hypertension) Lumbar spondylosis Hx of papillary thyroid carcinoma 2018; per chart review, had recurrence in 2 nodules anterior neck which were removed 2020 Hypothyroidism Acid reflux Arthritis Hx of dermatitis Pulmonary nodule History of COVID-19 (2022) no hosp; resolved History of postoperative nausea and vomiting History of anesthesia reaction hx elevated bp post op Surgical History History of esophagogastroduodenoscopy (EGD) Hx of colonoscopy History of foot surgery left History of appendectomy H/O thumb surgery H/O hernia repair Hx of tonsillectomy H/O: hysterectomy H/O thyroidectomy 2017 Family History Sister Hypothyroidism Mother Hearing loss Hypertension Asthma Father Cancer Brother Allergies Other No family history of adverse response to anesthesia No family history of bleeding disorder Social History Smoking Status: Former smoker Tobacco Type: Cigarettes Age Started Using Tobacco: 36; Age Quit Using Tobacco: 38; packs per day: 0.5; Second Hand Exposure: No; Do You Dip or Chew Tobacco: No; Hx Alcohol Use: Yes Alcohol type: beer Alcohol type Comment: 5 Hx Substance Use: No Preferred Language: Taiwanese Communication Ability: Effective Visual Impairment: No Limitations Hearing Ability: Normal Core Analysis Operator Required: No Beliefs That Will Affect Care: None marital status: Current Living Situation: Significant Other current occupational status: employed 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 [employer] Feels Safe at Home: Yes Assistive Devices: Glasses Review of Systems 2 Review of Systems: All systems reviewed & are unremarkable except as noted in HPI & below Constitutional: Bilateral foot and ankle edema Physical Exam 2 Physical Exam: Last 24h vitals reviewed GEN: no acute distress, sitting in bed, Appears comfortable HEENT: pupils equal, sclerae anicteric, slightly dry MM RESP: normal WOB, CTAB CV: reg no mrg ABD: soft nondistended and tender to palpation in the right upper quadrant with no rebound guarding or rigidity, bowel tones are present : no wilhelm SKIN: warm and dry, no generalized rashes NEURO: AOx person, place, and situation. Face symmetric, speech normal, moves 4 ext spontaneously and equally Results & Data Results & Data Vital Signs (Past 12 Hours) Vital Signs Temp Pulse Pulse Resp BP BP Pulse Ox 12/26/24 09:00 65 13 154/97 H 94 12/26/24 08:59 158/82 H 12/26/24 08:32 158/82 H 12/26/24 07:40 81 12/26/24 07:28 77 233/124 H 12/26/24 07:26 100 12/26/24 07:11 77 19 233/124 H 99 12/26/24 06:50 36.4 C L 86 20 241/132 H 97 O2 Del Method 12/26/24 09:00 Room Air 12/26/24 08:59 12/26/24 08:32 12/26/24 07:40 12/26/24 07:28 12/26/24 07:26 Room Air 12/26/24 07:11 Room Air 12/26/24 06:50 Room Air Laboratory Results 12/26/24 07:21 12/26/24 07:21 12/26/24 07:21 Abnormal lab results 12/26/24 12/26/24 Range/Units 07:21 07:33 WBC 3.89 L (4.8-10.8) K/ul RBC 3.38 L (4.20-5.40) M/uL Hgb 11.8 L (12.0-16.0) g/dl Hct 33.7 L (37.0-47.0) % MCH 34.9 H (25.0-34.0) pg RDW Std Deviation 49.2 H (36.4-46.3) fL Lymph # (Auto) 0.78 L (1.20-3.40) K/uL BUN 4 L (6-23) mg/dl Creatinine 0.42 L (0.6-1.2) mg/dl BUN/Creatinine Ratio 9.5 L (10-20) Glucose 119 H (70-99(Fasting)) mg/dl Total Bilirubin 1.2 H (0.2-1.0) mg/dl AST 238 H (13-39) U/L ALT 157 H (7-52) U/L Alkaline Phosphatase 464 H (34-104) U/L Urine pH 8.5 H (4.5-7.5) ECG Additional Comments: I personally reviewed the EKG tracing it shows normal sinus rhythm inferior Q's 3, aVF PG Care Time/CCT Total # of Minutes Spent Total Time Spent with Patient: Total time spent is greater than 50% in coordination of care (as documented) at patient's floor/unit and/or counseling patient: Coding Level of Care Code 76165 INT INP/OBS CARE MIN Diagnoses Acute cholecystitis K81.0 Hypokalemia E87.6 Papillary thyroid carcinoma C73 Hypoparathyroidism E20.9 HTN (hypertension) I10
--- NOTE | 2024-12-26 12:21 | Surgery Consultation ---
Date of Consultation December 26, 2024 Assessment & Plan (1) Abnormal liver enzymes: Patient will need a gastroenterology consult. MRCP plus or minus ERCP. Once we get the common bile duct situation figured out we can perform cholecystectomy during this admission. Will continue to follow along with the liver function test workup. (2) Acute cholecystitis: (3) Gallstones: History of Present Illness History of Present Illness Show 69-year-old female who began having abdominal discomfort yesterday. It worsened this morning and she presented to the emergency room. Workup at this point has revealed a potential early acute cholecystitis. She also has a slightly dilated common bile duct and elevated LFTs including a slightly elevated total bilirubin. She is feeling better than she was earlier secondary to pain medication. Allergies Allergy/AdvReac Type Severity Reaction Status Date / Time NSAIDS (Non-Steroidal Allergy Severe ANAPHYLAXIS Verified 12/26/24 08:45 Anti-Inflamma Penicillins Allergy Severe SWELLING Verified 12/26/24 08:45 A CHILD PER HER PARENTS. azithromycin Allergy Intermediate Hives Verified 12/26/24 08:45 chondroitin sulfate A Allergy Intermediate Rash Verified 12/26/24 08:45 [From Osteo Bi-Flex] clindamycin Allergy Intermediate Rash Verified 12/26/24 08:45 glucosamine Allergy Intermediate Rash Verified 12/26/24 08:45 [From Osteo Bi-Flex] prednisone Allergy Intermediate RASH Verified 12/26/24 08:45 strawberry Allergy Intermediate Hives Verified 12/26/24 08:45 albuterol AdvReac Intermediate Tachycardia Verified 12/26/24 08:45 levofloxacin AdvReac Intermediate GI UPSET Verified 12/26/24 08:45 Sulfa (Sulfonamide AdvReac Intermediate Tachycardia Verified 12/26/24 08:45 Antibiotics) sulfadiazine AdvReac Intermediate Abdominal Verified 12/26/24 08:45 Pain sulfamethoxazole AdvReac Intermediate Tachycardia Verified 12/26/24 08:45 tetracycline AdvReac Intermediate Abdominal Verified 12/26/24 08:45 Pain homatropine AdvReac Unknown Unknown Verified 12/26/24 08:45 [From Hycodan (with homatropine)] hydrocodone AdvReac Unknown Unknown Verified 12/26/24 08:45 [From Hycodan (with homatropine)] Home Medications Medication Instructions Recorded Confirmed Type omeprazole magnesium 20 mg 20 mg PO BID PRN Acid Reflux 01/20/24 12/26/24 History tablet,delayed release (Prilosec OTC) estradiol 1 mg tablet 1 mg PO QPM 11/29/24 12/26/24 History lenvatinib 14 mg/day (10 mg x 1 0 mg PO QPM 11/29/24 12/26/24 History and 4 mg x 1) capsule (Lenvima) valsartan 320 mg tablet 320 mg PO QPM 11/29/24 12/26/24 History atorvastatin 40 mg tablet 40 mg PO QAM #30 tabs 11/30/24 12/26/24 Rx carvedilol 3.125 mg tablet 3.125 mg PO BID #60 tabs 11/30/24 12/26/24 Rx multivitamin 1 tab PO DAILY 12/23/24 12/26/24 History potassium chloride 10 mEq 10 meq PO DAILY 12/23/24 12/26/24 History tablet,extended release sodium chloride 1,000 mg soluble 1,000 mg PO DAILY 12/23/24 12/26/24 History tablet levothyroxine 200 mcg tablet 200 mcg PO DAILY 12/26/24 12/26/24 History levothyroxine 25 mcg tablet 25 mcg PO DAILY 12/26/24 12/26/24 History Patient History Medical History Anemia HTN (hypertension) Lumbar spondylosis Hx of papillary thyroid carcinoma 2017; per chart review, had recurrence in 2 nodules anterior neck which were removed 2020 Hypothyroidism Acid reflux Arthritis Hx of dermatitis Pulmonary nodule History of COVID-19 (2022) no hosp; resolved History of postoperative nausea and vomiting History of anesthesia reaction hx elevated bp post op Surgical History History of esophagogastroduodenoscopy (EGD) Hx of colonoscopy History of foot surgery left History of appendectomy H/O thumb surgery H/O hernia repair Hx of tonsillectomy H/O: hysterectomy H/O thyroidectomy 2018 Family History Sister Hypothyroidism Mother Hearing loss Hypertension Asthma Father Cancer Brother Allergies Other No family history of adverse response to anesthesia No family history of bleeding disorder Social History Smoking Status: Former smoker Tobacco Type: Cigarettes Age Started Using Tobacco: 36; Age Quit Using Tobacco: 38; packs per day: 0.5; Second Hand Exposure: No; Hx Alcohol Use: Yes Alcohol type: beer Alcohol type Comment: 5 Hx Substance Use: No Preferred Language: B[place] Communication Ability: Effective Visual Impairment: No Limitations Hearing Ability: Normal Desk Reporter Required: No Beliefs That Will Affect Care: None marital status: Current Living Situation: Significant Other current occupational status: employed 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 [employer] Feels Safe at Home: Yes Assistive Devices: Glasses Review of Systems Review of Systems: All systems reviewed & are unremarkable except as noted in HPI & below Physical Exam Constitutional: WD/WN, vitals as above no acute distress and not ill appearing Eyes: PERRL, conjunctivae normal, anicteric sclerae EOM intact bilaterally ENMT: external ear and nose normal, oropharynx normal Ears: no hearing impairment Neck: trachea midline, no thyromegaly Respiratory: normal respiratory effort; no respiratory distress and does not use accessory muscles Cardiovascular: Rate/Rhythm: regular rate and regular rhythm Gastrointestinal (Abdomen): Soft. Mild epigastric and right upper quadrant tenderness. No peritonitis Skin: no rashes, warm and dry Psychiatric: Orientation: alert, oriented x 3 and cooperative Results & Data Vital Signs (Past 12 Hours) Vital Signs Temp Pulse Pulse Resp BP BP Pulse Ox 12/26/24 11:42 67 13 94 12/26/24 11:30 69 11 L 161/109 H 97 12/26/24 11:21 65 15 96 12/26/24 11:00 65 11 L 161/92 H 95 12/26/24 09:00 65 13 154/97 H 94 12/26/24 08:59 158/82 H 12/26/24 08:32 158/82 H 12/26/24 07:40 81 12/26/24 07:28 77 233/124 H 12/26/24 07:26 100 12/26/24 07:11 77 19 233/124 H 99 12/26/24 06:50 36.4 C L 86 20 241/132 H 97 O2 Del Method 12/26/24 11:42 12/26/24 11:30 12/26/24 11:21 12/26/24 11:00 12/26/24 09:00 Room Air 07/27/25 08:59 12/26/24 08:32 12/26/24 07:40 12/26/24 07:28 12/26/24 07:26 Room Air 12/26/24 07:11 Room Air 12/26/24 06:50 Room Air PG Care Time/CCT Total # of Minutes Spent Total Time Spent with Patient: Total time spent is greater than 50% in coordination of care (as documented) at patient's floor/unit and/or counseling patient: Coding Level of Care Code 19239 IN/OBS CONSULT LVL 3,45M Diagnoses Abnormal liver enzymes R74.8 Acute cholecystitis K81.0 Gallstones K80.20
[2024-12-26] MEDS ORDERED: POLYETHYLENE (MIRALAX) 17 GM PACK PO PRN (13:07)
[2024-12-26] MEDS ORDERED: MELATONIN 3 MG TAB PO PRN (13:07)
[2024-12-26] MEDS ORDERED: MAGNESIUM HYDROXIDE SUSP 30 ML UDC PO PRN (13:07)
[2024-12-26] MEDS ORDERED: MoRPHine SULFATE 4 MG/ML 1 ML CARP\\VIAL IV PRN (13:07)
[2024-12-26] MEDS ORDERED: MoRPHine SULFATE 2 MG/ML CARP IV PRN (13:07)
[2024-12-26] MEDS ORDERED: ALUMINUM/MAGNESIUM SUSP 30 ML UDC PO PRN (13:07)
--- NOTE | 2024-12-26 13:26 | Magnetic Resonance Report ---
MR MRCP CLINICAL HISTORY: RUQ pain poss choledocholithiasis, cholecystitis COMPARISON STUDY: Ultrasound of 12/26/[address] of 12/22/2024. FINDINGS: There is motion artifact. There are a few tiny gallstones. Gallbladder is mildly dilated wi th minimal gallbladder wall thickening, possible early cholecystitis. Common bile duct measures 8 mm diameter. No common bile duct stones seen. IMPRESSION: 1. Possible early acute cholecystitis. 2. Minimally dilated common bile duct with no common bile duct stone seen. ACT 112: Negative or not required by law. Electronically signed by: Willian Nichols M.D. 12/26/2024 1:23 PM
[2024-12-26] MEDS: D5NSS + 20MEQ KCL 20 MEQ/1,000 ML BAG IV SCH (14:08)
[2024-12-26] MEDS: metroNIDAZOLE 500 MG/100 ML BAG IV SCH (15:17)
[2024-12-26] MEDS: VALSARTAN 80 MG TAB PO SCH (20:30)
[2024-12-26] MEDS ORDERED: HYDROmorphone INJ 0.5 MG/0.5 ML SYR IV PRN (22:04)
[2024-12-26] MEDS: HYDROmorphone INJ 1 MG/ML SYRINGE IV PRN (22:17)
[2024-12-26] MEDS: ONDANSETRON INJ 2 MG/ML 2 ML VIAL IV PRN (22:53)
[2024-12-27] MEDS: PROCHLORPERAZINE 5 MG in SYRINGE 4 ML IV ONE (00:55)
[2024-12-27] MEDS: LEVOTHYROXINE SODIUM 75 MCG TABLET PO SCH (06:07)
--- NOTE | 2024-12-27 07:44 | Gastroenterology Progress Note ---
Date of Service December 27, 2024 Assessment & Plan (1) Abnormal liver enzymes: Plan: MRI MRCP did not reveal any common bile duct stones. She possibly passed a stone. Await repeat liver enzymes today. (2) Acute cholecystitis: Plan: MRI suggests acute cholecystitis await further surgical input regarding plan if no need for endoscopic intervention. Admission and Anticipated Discharge Date Admission Date: December 26, 2024 Subjective Resting comfortably did have some abdominal pain during the night which is now controlled no shortness of breath no chest pain Physical Exam Physical Exam: No acute distress Respiratory rate regular Cardiac rhythm regular Abdomen soft nontender Results & Data Results & Data Vital Signs (Past 12 Hours) Vital Signs Temp Pulse Pulse Resp BP Pulse Ox O2 Del Method 12/27/24 07:18 36.4 C 66 16 153/91 H 96 Room Air 12/26/24 22:00 169/96 H 12/26/24 20:21 37 C 80 18 187/97 H 97 Room Air Diagnostic Findings Chest X-Ray 12/26/24 07:13 EXAM: XR chest 1V portable CLINICAL HISTORY: RUQ abd pain TECHNIQUE: An X-ray image of the chest is obtained in 1 AP projection. COMPARISON: Comparing to prior chest CT on 12/22/2024 FINDINGS: Pulmonary Parenchyma: Stable peripheral fine reticulations. No evidence of consolidation, collapse, or focal opacities. No pulmonary nodules are identified. No evidence of pleural effusion or pleural thickening. Heart and Mediastinum: Heart size and shape are normal. No mediastinal widening or masses. No hilar or mediastinal lymphadenopathy. Bony Thorax: Bony thorax appears intact without fractures or deformities. Soft Tissues: Soft tissues overlying the chest wall are unremarkable. IMPRESSION: 1. Compared to the prior chest CT on 12/22/2024. 2. No acute cardiopulmonary abnormalities are identified. Electronically signed by Toni Jensen 12-26-2024 09:04 AM Gallbladder Ultrasound 12/26/24 07:13 US gallbladder CLINICAL HISTORY: RUQ abd pain COMPARISON STUDY: CT of 12/22/2024 FINDINGS: Pancreatic tail is obscured. There is minimal dilatation of the pancreatic duct measuring 3 mm diameter. Otherwise the visualized pancreatic body is grossly unremarkable. There is normal direction of flow in the portal vein. There is a 2.5 cm patchy echogenic finding in the left hepatic lobe which correlates with the hemangioma seen on the CT. Otherwise the liver is unremarkable measuring 14 cm. Common bile duct is dilated measuring 9 mm diameter. Gallbladder is mildly dilated. Gallbladder wall is mildly thickened measuring 4 mm thickness. There is a small amount of gallbladder sludge versus layering tiny gallstones. No pericholecystic fluid or ascites. Right kidney shows no hydronephrosis. IMPRESSION: 1. Appearance of the gallbladder could represent early acute cholecystitis. 2. Mild distention of the common bile duct. 3. Otherwise as described. ACT 112: Negative or not required by law. Electronically signed by: Willian Nichols M.D. 12/26/2024 8:38 AM Cholangiopancreatography MRI 12/26/24 11:22 MR MRCP CLINICAL HISTORY: RUQ pain poss choledocholithiasis, cholecystitis COMPARISON STUDY: Ultrasound of 12/26/[address] of 12/22/2024. FINDINGS: There is motion artifact. There are a few tiny gallstones. Gallbladder is mildly dilated with minimal gallbladder wall thickening, possible early cholecystitis. Common bile duct measures 8 mm diameter. No common bile duct stones seen. IMPRESSION: 1. Possible early acute cholecystitis. 2. Minimally dilated common bile duct with no common bile duct stone seen. ACT 112: Negative or not required by law. Electronically signed by: Willian Nichols M.D. 12/26/2024 1:23 PM PG Care Time/CCT Total # of Minutes Spent Total Time Spent with Patient: Total time spent is greater than 50% in coordination of care (as documented) at patient's floor/unit and/or counseling patient: Coding Level of Care Code 74783 SUB INP/OBS CARE 2/35MIN Diagnoses Abnormal liver enzymes R74.8 Acute cholecystitis K81.0
[2024-12-27 07:55] LABS: Alanine Aminotransferase 111.0 U/L (7-52); Albumin Globulin Ratio 1.6 (0.9-2); Alkaline Phosphatase 320.0 U/L (34-104); Anion Gap 5.0 (3-11); Bilirubin,Total 0.4 mg/dl (0.2-1.0); Blood Urea Nitrogen 3.0 mg/dl (6-23); Calcium 7.7 mg/dl (8.6-10.3); Carbon Dioxide 27.0 mmol/L (21-32); Chloride 105.0 mmol/L (98-107); Creatinine Clr Calc Pharmacy 113.2 ml/min; Globulin 2.0 gm/dl (2.5-4.0); Glucose 108.0 mg/dl (70-99(Fasting)); Magnesium 1.5 mg/dl (1.7-2.4); Potassium 3.5 mmol/L (3.5-5.1); Sodium 137.0 mmol/L (136-145); Total Protein 5.1 gm/dl (6.0-8.3)
[2024-12-27 08:27] LABS: Hematocrit (blood only) 29.5 % (37.0-47.0); Hemoglobin 10.0 g/dl (12.0-16.0); Mean Corpuscular Hemoglobin 34.5 pg (25.0-34.0); Mean Corpuscular Volume 101.7 fL (80.0-100.0); Platelet Count 151 K/uL (130-400); RDW Standard Deviation 52.2 fL (36.4-46.3); Red Blood Count 2.90 M/uL (4.20-5.40); White Blood Count 3.17 K/ul (4.8-10.8)
[2024-12-27] MEDS: POTASSIUM CHLORIDE 10 MEQ TABCR PO SCH (08:45)
[2024-12-27] MEDS: SODIUM CHLORIDE 1 GM TABLET PO SCH (08:45)
[2024-12-27] MEDS: ATORVASTATIN 40 MG TAB PO SCH (08:45)
--- NOTE | 2024-12-27 09:24 | Surgery Progress Note ---
Date of Service December 27, 2024 Assessment & Plan (1) Acute cholecystitis: (2) Gallstones: (3) Abnormal liver enzymes: Plan: 69 yo female with RUQ pain with early acute cholecystitis and elevated t. bili and lfts upon admission. MRCP negative for choledocholithiasis, t. bili normalized today. No leukocytosis but persistent pain requiring IV dilaudid last night and pain on examination. Discussed laparoscopic cholecystectomy with patients, risks of procedure, expected recovery and restrictions. She would like to proceed this admission. Keep NPO. Continue IV abx. will obtain consent in preop with Dr. Whitley. 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 No fevers or chills sweats and nausea with Dilaudid last night No chest pain or shortness of breath Physical Exam Constitutional: WD/WN, vitals as above cooperative and comfortable; no acute distress and not ill appearing Respiratory: normal respiratory effort; no respiratory distress Gastrointestinal (Abdomen): Inspection/Auscultation: abdomen normal to inspection; abdomen not distended Percussion/Palpation: + abdomen tender (RUQ with + Jcaques's sign) and abdomen soft; no guarding, abdomen not rigid and abdomen not firm Skin: no rashes, warm and dry no jaundice Psychiatric: Orientation: alert and oriented x 3 Results & Data Vital Signs (Past 12 Hours) Vital Signs Temp Pulse Resp BP Pulse Ox O2 Del Method 12/27/24 07:18 36.4 C 66 16 153/91 H 96 Room Air 12/26/24 22:00 169/96 H Laboratory Results 12/27/24 Range/Units 06:45 WBC 3.17 L (4.8-10.8) K/ul RBC 2.90 L (4.20-5.40) M/uL Hgb 10.0 L (12.0-16.0) g/dl Hct 29.5 L (37.0-47.0) % MCV 101.7 H (80.0-100.0) fL MCH 34.5 H (25.0-34.0) pg MCHC 33.9 (32.0-36.0) g/dL RDW Std Deviation 52.2 H (36.4-46.3) fL RDW Coeff of Cindi 13.9 (11.5-14.5) % Plt Count 151 (130-400) K/uL MPV 10.5 (9.4-12.4) fL Sodium 137 (136-145) mmol/L Potassium 3.5 (3.5-5.1) mmol/L Chloride 105 (98-107) mmol/L Carbon Dioxide 27 (21-32) mmol/L Anion Gap 5 (3-11) BUN 3 L (6-23) mg/dl Creatinine 0.41 L (0.6-1.2) mg/dl Est Cr Clr Drug Dosing 113.2 ml/min eGFR 105.12 BUN/Creatinine Ratio 7.3 L (10-20) Glucose 108 H (70-99(Fasting)) mg/dl Calcium 7.7 L (8.6-10.3) mg/dl Magnesium 1.5 L (1.7-2.4) mg/dl Total Bilirubin 0.4 D (0.2-1.0) mg/dl AST 84 H (13-39) U/L ALT 111 H (7-52) U/L Alkaline Phosphatase 320 H (34-104) U/L Total Protein 5.1 L (6.0-8.3) gm/dl Albumin 3.1 L (3.4-5.0) gm/dl Globulin 2.0 L (2.5-4.0) gm/dl Albumin/Globulin Ratio 1.6 (0.9-2)
--- NOTE | 2024-12-27 09:44 | Anesthesiology Consultation ---
Date of Service December 27, 2024 Assessment & Plan (1) Encounter for pre-operative examination: Chart Review Chart Review: Acceptable Risk for Surgery History Surgery Operation Date: 12/27/24 11:00 Proposed Procedures p Laparoscopic Cholecystectomy - Rickey Whitley MD Height/Weight Height: 5 ft 5 in Weight: 61 kg Allergies Allergy/AdvReac Type Severity Reaction Status Date / Time NSAIDS (Non-Steroidal Allergy Severe ANAPHYLAXIS Verified 12/26/24 08:45 Anti-Inflamma Penicillins Allergy Severe SWELLING Verified 12/26/24 08:45 A CHILD PER HER PARENTS. azithromycin Allergy Intermediate Hives Verified 12/26/24 08:45 chondroitin sulfate A Allergy Intermediate Rash Verified 12/26/24 08:45 [From Osteo Bi-Flex] clindamycin Allergy Intermediate Rash Verified 12/26/24 08:45 glucosamine Allergy Intermediate Rash Verified 12/26/24 08:45 [From Osteo Bi-Flex] prednisone Allergy Intermediate RASH Verified 12/26/24 08:45 strawberry Allergy Intermediate Hives Verified 12/26/24 08:45 albuterol AdvReac Intermediate Tachycardia Verified 12/26/24 08:45 levofloxacin AdvReac Intermediate GI UPSET Verified 12/26/24 08:45 Sulfa (Sulfonamide AdvReac Intermediate Tachycardia Verified 12/26/24 08:45 Antibiotics) sulfadiazine AdvReac Intermediate Abdominal Verified 12/26/24 08:45 Pain sulfamethoxazole AdvReac Intermediate Tachycardia Verified 12/26/24 08:45 tetracycline AdvReac Intermediate Abdominal Verified 12/26/24 08:45 Pain homatropine AdvReac Unknown Unknown Verified 12/26/24 08:45 [From Hycodan (with homatropine)] hydrocodone AdvReac Unknown Unknown Verified 12/26/24 08:45 [From Hycodan (with homatropine)] Medications Home Medications Medication Instructions Recorded Confirmed Last Taken omeprazole magnesium 20 mg 20 mg PO BID PRN Acid Reflux 01/20/24 12/26/24 12/25/24 tablet,delayed release (Prilosec OTC) estradiol 1 mg tablet 1 mg PO QPM 11/29/24 12/26/24 12/25/24 lenvatinib 14 mg/day (10 mg x 1 0 mg PO QPM 11/29/24 12/26/24 11/28/24 and 4 mg x 1) capsule (Lenvima) valsartan 320 mg tablet 320 mg PO QPM 11/29/24 12/26/24 12/25/24 atorvastatin 40 mg tablet 40 mg PO QAM #30 tabs 11/30/24 12/26/24 12/25/24 carvedilol 3.125 mg tablet 3.125 mg PO BID #60 tabs 11/30/24 12/26/24 12/25/24 multivitamin 1 tab PO DAILY 12/23/24 12/26/24 12/25/24 potassium chloride 10 mEq 10 meq PO DAILY 12/23/24 12/26/24 12/25/24 tablet,extended release sodium chloride 1,000 mg soluble 1,000 mg PO DAILY 12/23/24 12/26/24 12/25/24 tablet levothyroxine 200 mcg tablet 200 mcg PO DAILY 12/26/24 12/26/24 12/25/24 levothyroxine 25 mcg tablet 25 mcg PO DAILY 12/26/24 12/26/24 12/25/24 Active Medications Generic Name Dose Route Start Last Admin Trade Name Freq PRN Reason Stop Dose Admin Atorvastatin Calcium 40 mg 12/27/24 09:00 12/27/24 08:45 Atorvastatin 40 Mg Tab PO 01/26/25 08:59 40 mg QAM MASON Administration Carvedilol 3.125 mg 12/26/24 21:00 12/27/24 08:45 Carvedilol 3.125 Mg Tab PO 01/25/25 20:59 3.125 mg BID MASON Administration Estradiol 1 mg 12/26/24 21:00 12/26/24 20:31 Estradiol 1 Mg Tab PO 01/25/25 20:59 1 mg QPM MASON Administration Hydromorphone HCl 1 mg 12/26/24 22:04 12/26/24 22:17 Hydromorphone Inj 1 Mg/Ml Syringe IV 01/09/25 22:03 1 mg Q3H PRN Administration Pain 6,7,8,9,10 Potassium Chloride/Dextrose/Sod Cl 20 meq in 1,000 mls @ 125 mls/hr 12/26/24 13:30 12/27/24 08:45 D5nss + 20meq Kcl IV 12/29/24 13:29 125 mls/hr .Q8H MASON Administration Levofloxacin/Dextrose 750 mg in 150 mls @ 100 mls/hr 12/26/24 15:00 12/26/24 17:02 Levaquin/D5w IV 12/30/24 14:59 Infused Q24H MASON Infusion Protocol Metronidazole 500 mg in 100 mls @ 100 mls/hr 12/26/24 15:00 12/27/24 07:39 Flagyl IV 12/30/24 14:59 Infused Q8H MASON Infusion Protocol Levothyroxine Sodium 225 mcg 12/27/24 06:30 12/27/24 06:07 Levothyroxine Sodium 75 Mcg Tablet PO 01/26/25 06:29 225 mcg DAILYBB MASON Administration Ondansetron HCl 4 mg 12/26/24 13:07 12/26/24 22:53 Ondansetron Inj 2 Mg/Ml 2 Ml Vial IV 01/25/25 13:06 4 mg Q6H PRN Administration Nausea Pantoprazole Sodium 40 mg 12/26/24 21:00 12/27/24 08:45 Pantoprazole 40 Mg Tab PO 01/25/25 20:59 40 mg BID MASON Administration Potassium Chloride 10 meq 12/27/24 09:00 12/27/24 08:45 Potassium Chloride 10 Meq Tabcr PO 01/26/25 08:59 10 meq DAILY MASON Administration Sodium Chloride 1 gm 12/27/24 09:00 12/27/24 08:45 Sodium Chloride 1 Gm Tablet PO 01/26/25 08:59 1 gm DAILY MASON Administration Valsartan 320 mg 12/26/24 21:00 12/26/24 20:30 Valsartan 80 Mg Tab PO 01/25/25 20:59 320 mg QPM MASON Administration Past Medical History Medical History Anemia HTN (hypertension) Lumbar spondylosis Hx of papillary thyroid carcinoma 2018; per chart review, had recurrence in 2 nodules anterior neck which were removed 2020 Hypothyroidism Acid reflux Arthritis Hx of dermatitis Pulmonary nodule History of COVID-19 (2022) no hosp; resolved History of postoperative nausea and vomiting History of anesthesia reaction hx elevated bp post op Past Family History Family History Sister Hypothyroidism Mother Hearing loss Hypertension Asthma Father Cancer Brother Allergies Other No family history of adverse response to anesthesia No family history of bleeding disorder Past Surgical History Surgical History History of esophagogastroduodenoscopy (EGD) Hx of colonoscopy History of foot surgery left History of appendectomy H/O thumb surgery H/O hernia repair Hx of tonsillectomy H/O: hysterectomy H/O thyroidectomy 2018 Social History Smoking Status: Former smoker Do You Dip or Chew Tobacco: No Smoking End Date: 35 years ago. Hx Alcohol Use: Yes Alcohol type: beer alcohol intake frequency: a few times a week Hx Substance Use: No substance use type: does not use Physical Exam Vital Signs Last Vital Signs Temp 36.4 C 12/27/24 07:18 Pulse 66 12/27/24 07:18 Resp 16 12/27/24 07:18 BP 153/91 H 12/27/24 07:18 Pulse Ox 96 12/27/24 07:18 O2 Del Method Room Air 12/27/24 07:18 Testing Laboratory Results 12/27/24 06:45 12/27/24 06:45 Urine Color Yellow 12/26/24 07:33 Urine Appearance Clear (Clear) 12/26/24 07:33 Urine pH 8.5 (4.5-7.5) H 12/26/24 07:33 Ur Specific [place] 1.004 (1.000-1.030) 12/26/24 07:33 Urine Protein Negative (Negative) 12/26/24 07:33 Urine Glucose (UA) Negative (Negative) 12/26/24 07:33 Urine Ketones Negative (Negative) 12/26/24 07:33 Urine Nitrite Negative (Negative) 12/26/24 07:33 Ur Leukocyte Esterase Negative (Negative) 12/26/24 07:33 Electrocardiogram Date: 12/26/24 Findings: + NSR @ (81) question of inferior q waves Echocardiogram Date: 11/30/24 EF: 60-65% LV Function: normal Valvular Disease: + no significant valvular disease
[2024-12-27] MEDS ORDERED: ONDANSETRON INJ 2 MG/ML 2 ML VIAL ONE (10:02)
[2024-12-27] MEDS ORDERED: PROPOFOL IV EMULSION 10 MG/ML 20 ML VIAL IV ONE (10:02)
[2024-12-27] MEDS ORDERED: DEXAMETHASONE SOD INJ 4 MG/ML VIAL ONE (10:02)
[2024-12-27] MEDS ORDERED: ROCURONIUM BROMIDE 10 MG/ML 5 ML VIAL IV ONE (10:02)
[2024-12-27] MEDS ORDERED: LIDOCAINE 2% 2 ML VIAL/AMP(20MG/ML) INFIL ONE (10:02)
[2024-12-27] MEDS ORDERED: DROPERIDOL 5 MG/2 ML VIAL ONE (10:03)
[2024-12-27] MEDS ORDERED: MIDAZOLAM HCL 1 MG/ML 2ML VIAL ONE (10:26)
[2024-12-27] MEDS ORDERED: LABETALOL HCL IV 5 MG/ML 20ML IV PRN (10:34)
[2024-12-27] MEDS ORDERED: ATROPINE SULFATE 0.1 MG/ML 10ML SYR IV PRN (10:34)
[2024-12-27] MEDS ORDERED: PROMETHAZINE HCL 6.25 MG in SODIUM CHLORIDE 0.9% 50 ML IV PRN (10:34)
--- NOTE | 2024-12-27 10:34 | History & Physical Bridge Note ---
Date of Service December 27, 2024 History & Physical Bridge Note I have examined the patient, reviewed the History & Physical and in the interval since the performance of the History & Physical I have noted the following changes of clinical significance: no changes noted
[2024-12-27] MEDS ORDERED: SUGAMMADEX SODIUM 200 MG/2 ML VIAL IV ONE (11:33)
--- NOTE | 2024-12-27 11:36 | Post Operative Brief Note ---
Immediate Post Op Note Date of Surgery December 27, 2024 Pre & Post Diagnosis Operation Date: 12/27/24 11:00 Pre-Op Diagnosis: Acute cholecystitis Post-Op Diagnosis: Acute cholecystitis I identified the patient and participated in the time-out.: Yes Procedure Operation Date: 12/27/24 11:00 Actual Procedures p Laparoscopic Cholecystectomy(Not Applicable) - Rickey Whitley MD Surgeon Rickey Whitley MD Resident Director TAZ Ragland assisted with tissue retraction, camera op, closure Estimated Blood Loss 5 Findings Consistent with Post-Op Diagnosis
[2024-12-27] MEDS: BUPIVACAINE/EPINEPHRINE 0.25% 1:200,000 30 ML VIAL ONE (11:37)
--- NOTE | 2024-12-27 11:37 | Operative Report ---
Post Operative Report Pre & Post Diagnosis Operation Date: 12/27/24 11:00 Pre-Op Diagnosis: Acute cholecystitis Post-Op Diagnosis: Acute cholecystitis I identified the patient and participated in the time-out.: Yes Procedure Operation Date: 12/27/24 11:00 Actual Procedures p Laparoscopic Cholecystectomy(Not Applicable) - Rickey Whitley MD Surgeon Rickey Whitley MD Bottling Line Operator TAZ Ragland assisted with tissue retraction, camera op, closure Estimated Blood Loss 5 Findings Consistent with Post-Op Diagnosis Specimens gallbladder Drains none Anesthesia Type General Complications none Description of Procedure the patient was taken to the operating room, and placed supine on the operating table. A timeout was performed, perioperative antibiotics were administered, SCD boots were placed. After adequate anesthesia and analgesia was obtained, the abdomen was prepped and draped in the normal sterile fashion. Local anesthetic was injected into and around the proposed incision sites. An incision was made with a 15 blade scalpel in the supraumbilical region and carried down to the level of the fascia. The fascia was grasped with a trach hook, and a varies needle was used to enter the abdominal cavity. The abdomen w as insufflated to a pressure of 15 mmHg, and a 11 mm trocar was placed in this location. A 10 mm, 30 degree laparoscope was placed into the abdominal cavity, and the abdomen was surveyed. Two 5 mm trochars were placed along the right costal margin, and one 5 mm trocar was placed in the subxiphoid region under direct visualization. The gallbladder was grasped and retracted cephalad and laterally, exposing the triangle of Calot. Dissection began in the triangle with a combination of blunt dissection with the [place] dissector, and judicious use of the hook cautery. The cystic duct and cystic artery were dissected free circumferentially, and a critical view of safety was obtained. The cystic duct and cystic artery were clipped and transected, and the gallbladder was removed from the gallbladder fossa with the hook cautery. The camera was switched to a 5 mm, the gallbladder was placed in an Endo Catch bag, and removed via the supraumbilical port site. The camera was switched back to the 10 mm camera, and the abdomen was surveyed again. Hemostasis was checked and attended, and was excellent. The abdomen was copiously irrigated and suctioned free. Again hemostasis was checked and was excellent. All trochars were removed under direct visualization. The abdomen was desufflated. The fascia in the 11 mm port site was closed with a 0 Vicryl suture. The skin was closed with a running 4-0 Monocryl subcuticular stitch. Dermabond was applied. The patient tolerated the procedure without complication, and was transferred in stable condition to the PACU. All instrument, needle, and sponge counts were correct at the end of the case. My children's nursery assistant was necessary throughout the procedure for tissue retraction, possible camera operation, and closure of the wounds. I understand that section 1842(b)(7)(D) of the Social Security act generally prohibits Medicare physician fee schedule payment for the services of assistants at surgery in teaching hospitals when qualified residents are available to furnish such services. I certify that the services for which payment is claimed were medically necessary and that no qualified resident was available to perform the services. I further understand that these services are subject to postpayment review by the Medicare carrier. I attest to the content of the Intraoperative Record and any orders documented therein. Any exceptions are noted below.
[2024-12-27] MEDS: HYDROmorphone INJ 1 MG/ML SYRINGE IV PRN (12:15)
[2024-12-27] MEDS: MAGNESIUM SULFATE / D5W 1 GM/100 ML BAG IV SCH ×2 (14:16→21:20)
--- NOTE | 2024-12-27 16:21 | Anesthesiology Progress Note ---
Date of Service December 27, 2024 Anesthesia Post Procedure Vital Signs Vital Signs: Temp Pulse Pulse Pulse Resp BP BP 12/27/24 16:19 36.4 C L 84 16 173/92 H 12/27/24 14:59 88 18 178/92 H 12/27/24 13:58 36.4 C L 83 16 168/90 H 12/27/24 13:32 36.4 C L 80 16 160/74 H 12/27/24 13:06 36.4 C L 77 16 136/76 12/27/24 12:50 73 14 139/76 12/27/24 12:40 77 9 L 123/73 12/27/24 12:30 79 12 142/80 H 12/27/24 12:20 78 12 145/88 H 12/27/24 12:10 79 16 138/81 12/27/24 12:00 77 16 117/69 12/27/24 11:52 36.0 C L 74 12 114/71 12/27/24 10:04 36.5 C 69 20 180/101 H 12/27/24 07:18 36.4 C 66 16 153/91 H 12/26/24 22:00 169/96 H 12/26/24 20:21 37 C 80 18 187/97 H 12/26/24 16:26 63 145/88 H Pulse Ox O2 Del Method O2 Flow Rate 12/27/24 16:19 94 Room Air 12/27/24 14:59 92 Room Air 12/27/24 13:58 96 Room Air 12/27/24 13:32 96 Nasal Cannula 2 12/27/24 13:06 95 Nasal Cannula 2 12/27/24 12:50 95 Nasal Cannula 2 12/27/24 12:40 96 Nasal Cannula 2 12/27/24 12:30 95 Room Air 12/27/24 12:20 98 Oxymask 4 12/27/24 12:10 98 Oxymask 4 12/27/24 12:00 98 Oxymask 4 12/27/24 11:52 96 Oxymask 4 12/27/24 10:04 98 Room Air 12/27/24 07:18 96 Room Air 12/26/24 22:00 12/26/24 20:21 97 Room Air 12/26/24 16:26 Pain Intensity Right Upper Abdomen: Pain Intensity: 6 Abdomen: Pain Intensity: 5 Transfer of Care Handoff Completed per policy Notes Mental Status: alert / awake / arousable and participated in evaluation Patient Amnestic to Procedure: Yes Nausea / Vomiting: adequately controlled Pain: adequately controlled Airway Patency, RR, SpO2: stable & adequate BP & HR: stable & adequate Hydration State: stable & adequate Anesthetic Complications: no major complications apparent and Pt Satisfied with anesthetic care
[2024-12-27] MEDS: ACETAMINOPHEN 325 MG TAB PO PRN (20:00)
--- NOTE | 2024-12-27 20:25 | Hospitalist Progress Note ---
Date of Service December 27, 2024 Assessment & Plan (1) Acute cholecystitis: (2) Hypokalemia: (3) Papillary thyroid carcinoma: (4) Hypoparathyroidism: (5) HTN (hypertension): Plan 69 y/o woman with metastatic thyroid cancer and hypertension who was admitted with acute cholecystitis She has right upper quadrant tenderness, elevated LFTs in a cholestatic pattern appearance consistent with early cholecystitis on gallbladder ultrasound with mild common bile duct distention General Surgery and gastroenterology consulted. MRCP showed possible early acute cholecystitis, minimally dilated common bile duct with no common bile duct stone seen. Underwent lap sunil 12/[address] 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 She is mildly leukopenic - stable today - but neutrophil count is normal - subacute diarrhea and leg edema have been attributed to this # subacute diarrhea with light-colored stools - potentially related to gallbladder dysfunction - ordered stool BioFire and C. difficile but she has had no stools so far this admission Imodium as needed # surgical hypothyroidism, hyperparathyroidism TSH/T4 was recently well-controlled. Continue levothyroxine 225 mcg daily # chronic hyponatremiasodium 135 on presentation. # hypokalemia # hypomagnesemia - maintenance fluids with IV D5 NS with 20 mill equivalents of potassium - continue salt tabs when taking p.o. - BMP normal today, mag mildly low at 1.5 - replace with 2g IV # recent TIA in November - continue anti- hypertensives and statin, she is intolerant of aspirin because of allergy and the Plavix has a significant drug interaction with her cancer treatment thus she is not on an antiplatelet agent # hypertensioncontinue valsartan and carvedilol. Hypertensive today and also was yesterday. Increase carvedilol to 6.25 bid DVT prophylaxisSCDs for now, start tomorrow if not discharging Admission and Anticipated Discharge Date Admission Date: December 26, 2024 Subjective I saw her postop, still a little groggy. Says she is generally "not doing well" but denied abdominal or chest pain, nausea, dyspnea. Could not specify and went back to sleep. Appears comfortable. Physical Exam 2 Physical Exam: Last 24h vitals reviewed GEN: lying in bed sleeping, mildly sedated but arouses to voice, appears comfortable HEENT: pupils equal, sclerae anicteric, moist MM RESP: normal WOB, CTAB CV: reg no mrg ABD: nondistended, soft : no wilhelm SKIN: warm and dry, no generalized rashes NEURO: sleepy/sedated oriented to situation, aroused to voice Results & Data Results & Data Vital Signs (Past 12 Hours) Vital Signs Temp Pulse Pulse Resp BP Pulse Ox O2 Del Method 12/27/24 19:14 36.3 C L 84 16 197/95 H 95 Room Air 12/27/24 16:19 36.4 C L 84 16 173/92 H 94 Room Air 12/27/24 14:59 88 18 178/92 H 92 Room Air 12/27/24 13:58 36.4 C L 83 16 168/90 H 96 Room Air 12/27/24 13:32 36.4 C L 80 16 160/74 H 96 Nasal Cannula 12/27/24 13:06 36.4 C L 77 16 136/76 95 Nasal Cannula 12/27/24 12:50 73 14 139/76 95 Nasal Cannula 12/27/24 12:40 77 9 L 123/73 96 Nasal Cannula 12/27/24 12:30 79 12 142/80 H 95 Room Air 12/27/24 12:20 78 12 145/88 H 98 Oxymask 12/27/24 12:10 79 16 138/81 98 Oxymask 12/27/24 12:00 77 16 117/69 98 Oxymask 12/27/24 11:52 36.0 C L 74 12 114/71 96 Oxymask 12/27/24 10:04 36.5 C 69 20 180/101 H 98 Room Air O2 Flow Rate 12/27/24 19:14 12/27/24 16:19 12/27/24 14:59 12/27/24 13:58 12/27/24 13:32 2 12/27/24 13:06 2 12/27/24 12:50 2 12/27/24 12:40 2 12/27/24 12:30 12/27/24 12:20 4 12/27/24 12:10 4 12/27/24 12:00 4 12/27/24 11:52 4 12/27/24 10:04 Laboratory Results 12/27/24 06:45 12/27/24 06:45 PG Care Time/CCT Total # of Minutes Spent Total Time Spent with Patient: Total time spent is greater than 50% in coordination of care (as documented) at patient's floor/unit and/or counseling patient: Coding Level of Care Code 27686 SUB INP/OBS CARE 2/35MIN Diagnoses Acute cholecystitis K81.0 Hypokalemia E87.6 Papillary thyroid carcinoma C73 Hypoparathyroidism E20.9 HTN (hypertension) I10
--- NOTE | 2024-12-28 06:05 | Electrocardiogram Report ---
Test Reason : Blood Pressure : */* mmHG Vent. Rate : 81 BPM Atrial Rate : 81 BPM P-R Int : 152 ms QRS Dur : 84 ms QT Int : 386 ms P-R-T Axes : -12 -12 -19 degrees QTcB Int : 448 ms Normal sinus rhythm Inferior infarct , age undetermined Abnormal ECG When compared with ECG of 06-Apr-2024 07:02, Inferior infarct is now Present Confirmed by Brooks Vasquez ([id number]) on 12/28/2024 6:04:48 AM Referred By: REFERRED SELF Confirmed By: Brooks Vasquez
[2024-12-28 06:56] LABS: Alanine Aminotransferase 84.0 U/L (7-52); Albumin Globulin Ratio 1.5 (0.9-2); Alkaline Phosphatase 263.0 U/L (34-104); Anion Gap 6.0 (3-11); Bilirubin,Total 0.4 mg/dl (0.2-1.0); Blood Urea Nitrogen 2.0 mg/dl (6-23); Calcium 7.8 mg/dl (8.6-10.3); Carbon Dioxide 25.0 mmol/L (21-32); Chloride 104.0 mmol/L (98-107); Creatinine Clr Calc Pharmacy 129.0 ml/min; Globulin 2.1 gm/dl (2.5-4.0); Glucose 140.0 mg/dl (70-99(Fasting)); Magnesium 2.1 mg/dl (1.7-2.4); Potassium 3.4 mmol/L (3.5-5.1); Sodium 135.0 mmol/L (136-145); Total Protein 5.3 gm/dl (6.0-8.3)
[2024-12-28 07:12] VITALS: BP 177/96; PULSE 74; RESP 18; TEMP 98.2; O2SAT 97
--- NOTE | 2024-12-28 08:35 | Surgery Progress Note ---
Date of Service December 28, 2024 Assessment & Plan (1) Acute cholecystitis: Plan: POD # 1 s/p lap sunil avss, hypertension, mild pain controlled with Tylenol +flatus nausea and vomiting last night none this am (2) Gallstones: (3) Abnormal liver enzymes: Plan: LFTS improving T. bili normal Plan Okay from surgical standpoint for discharge ADAT ambulate hallway discharge instructions reviewed 2 week postop visit in surgery office patient did not want any narcotic sent to pharmacy will take Tylenol prn pain Discussed with Dr. ruffin who agrees with above. Admission and Anticipated Discharge Date Admission Date: December 26, 2024 Subjective feeling better this am had episode of nausea and vomiting last night tolerating clears so far this am no fever or chills soreness at incisions, preop pain resolved urinating without difficulty ambulating to bathroom Physical Exam Constitutional: WD/WN, vitals as above cooperative and comfortable; no acute distress and not ill appearing Respiratory: normal respiratory effort; no respiratory distress Gastrointestinal (Abdomen): Inspection/Auscultation: abdomen normal to inspection and + abdominal surgical incision (c/d/i with dermabond); abdomen not distended Percussion/Palpation: + abdomen tender (mild at incision sites, appropriate postop) and abdomen soft; no guarding, abdomen not rigid and abdomen not firm Skin: no rashes, warm and dry Results & Data Vital Signs (Past 12 Hours) Vital Signs Temp Pulse Resp BP BP Pulse Ox O2 Del Method 12/28/24 07:10 36.8 C 74 18 177/96 H 97 Room Air 12/28/24 03:47 36.5 C 78 16 183/102 H 96 Room Air 12/27/24 23:20 36.6 C 76 18 158/72 H 97 Room Air 12/27/24 21:12 183/90 H Laboratory Results 12/28/24 Range/Units 05:31 Sodium 135 L (136-145) mmol/L Potassium 3.4 L (3.5-5.1) mmol/L Chloride 104 (98-107) mmol/L Carbon Dioxide 25 (21-32) mmol/L Anion Gap 6 (3-11) BUN 2 L (6-23) mg/dl Creatinine 0.36 L (0.6-1.2) mg/dl Est Cr Clr Drug Dosing 129.0 ml/min eGFR 108.47 BUN/Creatinine Ratio 5.6 L (10-20) Glucose 140 H (70-99(Fasting)) mg/dl Calcium 7.8 L (8.6-10.3) mg/dl Magnesium 2.1 (1.7-2.4) mg/dl Total Bilirubin 0.4 (0.2-1.0) mg/dl AST 45 H (13-39) U/L ALT 84 H (7-52) U/L Alkaline Phosphatase 263 H (34-104) U/L Total Protein 5.3 L (6.0-8.3) gm/dl Albumin 3.2 L (3.4-5.0) gm/dl Globulin 2.1 L (2.5-4.0) gm/dl Albumin/Globulin Ratio 1.5 (0.9-2)
--- NOTE | 2024-12-28 09:07 | Discharge Summary ---
Discharge Summary Date of Service December 28, 2024 Principal Dx & Hospital Course #1 = Principal Diagnosis (1) Acute cholecystitis: (2) Hypokalemia: (3) Papillary thyroid carcinoma: (4) Hypoparathyroidism: (5) HTN (hypertension): Plan # Acute cholecystitis 69 y/o woman with metastatic thyroid cancer and hypertension who was admitted with acute cholecystitis. General Surgery and gastroenterology consulted. MRCP showed possible early acute cholecystitis, minimally dilated common bile duct with no common bile duct stone seen. Underwent lap sunil 12/[address] Whitley. Received flagyl and levofloxacin while in patient. LFTS improving. Declined narcotic pain medication on discharge, zofran prescription was sent. 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 Lower counts - rec discussing with her oncologist before restarting. - subacute diarrhea and leg edema have been attributed to this # subacute diarrhea with light-colored stools no stools during admisison Imodium as needed # surgical hypothyroidism, hyperparathyroidism TSH/T4 was recently well-controlled. Continue levothyroxine 225 mcg daily # chronic hyponatremiasodium 135 on presentation. # hypokalemia - replaced PO, 3.4 day of discharge # hypomagnesemia - repleted IV # recent TIA in November - continue anti- hypertensives and statin, she is intolerant of aspirin because of allergy and the Plavix has a significant drug interaction with her cancer treatment thus she is not on an antiplatelet agent # hypertensioncontinue valsartan. Increase carvedilol to 6.25 bid dispo: Discharge to home today Notes For Next Care Provider should discussed with oncologist before restarting her chemotherapy Medication Changes From Visit carvedilol increased to 6.25 mg twice daily Admission HPI Per Admitting Provider 69 y/o woman with metastatic thyroid cancer and hypertension who came to ED with RUQ abdominal pain. she has been having intermittent right upper quadrant pain after eating for quite a while however no prolonged/severe episodes. Yesterday afternoon she began to have right upper quadrant abdominal pain, she ate ice cream in the evening which made it worse. pain did not improve so she sought evaluation in the emergency department today. She has had some nausea but no vomiting. She has had subacute to chronic diarrhea over the past few months with light or james colored stools. She denies any antibiotics in the last several months. She states that she has been losing weight recently because of the diarrhea and her cancer and chemotherapy. she noticed some chills this morning but has been afebrile since presenting to the ED. currently she has some mild pain in the right upper quadrant but it is well-controlled on The medications given. Discharge Exam Last 24h vitals reviewed GEN: sitting up in bed, appears comfortable HEENT: pupils equal, sclerae anicteric, moist MM RESP: normal WOB, CTAB CV: reg no mrg ABD: nondistended, soft : no wilhelm SKIN: warm and dry, no generalized rashes e Discharge Plan Discharge Items Patient Disposition: Home - Self-Care Reason For Visit: RUQ PAIN Discharge Diagnosis: Acute cholecystitis Condition on Discharge: Good Activity: Per Instructions section Non-emergency contact: Primary Care Provider and Surgeon Call non-emergency contact if: you have any medication questions, your symptoms worsen and your temperature is above 101 Follow-up/Referrals: Aminah Ragland PA-C [Physician Parachute Officer] - (2 weeks) Anita Groves [Primary Care Provider] - Diet: Regular Addtl Attending Provider Instructions: Post cholecystectomy (gallbladder removal surgery) for acute cholecystitis -acetaminophen as needed for pain -ondansetron as needed for nausea For constipation (common after surgery): Miralax 1 capful daily or twice a day as needed Senna tabs 1-2 tabs daily as needed -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 are 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 to 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 Dulcolax 5-10 mg tab daily as needed if the above meds are ineffective Dulcolax suppository per rectum daily as needed -these are for more severe constipation and are for short term use These medications are all available over the counter at the drugstore For your diarrhea you can also take imodium as needed Talk to your oncologist about when to restart the Lenvima I increased your carvedilol because your blood pressure is still too high It was a pleasure taking care of you in the hospital, Karine Smart MD Addtl Patient Navigator Provider Instructions: Post-Surgical ~Discharge Instructions Activity Recommendations: - lifting limitation: (20 pounds for 2-3 weeks), - exercise/sex/sports limit: (nonstrenuous for 2 weeks), - driving or machine use limit: (none for at least 3 days to 1 week or until pain free), - Shower/bathe limit: (may shower, no submerging incisions underwater for 2 weeks) Diet: - Resume previous diet SPECIAL CARE INSTRUCTIONS: - May shower. Let water run over area and pat dry. - Leave surgical glue on incisions this will fall off on its own. - Call the surgeon's office with any questions or concerns - - (ex. temperature higher than 101 degrees F, excessive bleeding or pain). MEDICATIONS: - Resume previous medications unless instructed otherwise by your surgeon. - Tylenol 650 mg every 6 hours as needed FOLLOW UP VISIT: - If not already scheduled, please call the office to schedule a two week follow-up appointment. Office number Pending Studies at Discharge: Yes (pathology report - gallbladder) Stand-Alone Forms: [facility] Audioscribe, Smoking Cessation Medications and DC Order Prescriptions: New carvedilol 6.25 mg Tablet 6.25 mg PO BID Qty: 60 0RF ondansetron 4 mg tablet,disintegrating 4 mg PO Q6H PRN (Reason: nausea and vomiting) Qty: 20 0RF loperamide [Imodium A-D] 2 mg tablet 2 mg PO Q3H PRN (Reason: loose stool) Qty: 30 0RF Rx Instructions: administer after each loose stool until symptoms controlled; do not exceed 16 mg per 24 hrs Continued omeprazole magnesium [Prilosec OTC] 20 mg tablet,delayed release (DR/EC) 20 mg PO BID PRN (Reason: Acid Reflux) potassium chloride 10 mEq tablet extended release 10 meq PO DAILY multivitamin Tablet 1 tab PO DAILY sodium chloride 1,000 mg tablet,soluble 1,000 mg PO DAILY valsartan 320 mg tablet 320 mg PO QPM estradiol 1 mg tablet 1 mg PO QPM atorvastatin 40 mg Tablet 40 mg PO QAM Qty: 30 0RF levothyroxine 200 mcg Tablet 200 mcg PO DAILY Rx Instructions: Take with 25mcg to equal 225mcg daily levothyroxine 25 mcg Tablet 25 mcg PO DAILY Rx Instructions: Take with 200mcg to equal 225mcg daily Held Lenvima 14 mg/day(10 mg x 1-4 mg x 1) capsule 0 mg PO QPM Hold Instructions: Resume on 01/11/25. discuss with your oncologist when to resume postoperatively Patient Comments: Currently on hold per pt's PCP for 4 more days. Dose will most likely be changed when restarting. - 12/26/24 Discontinued carvedilol 3.125 mg tablet 3.125 mg PO BID Qty: 60 0RF Rx Instructions: must administer with a meal/food Discharge Orders: Discharge Order (Routine); Ordered 12/28/24 Ordered By: Karine Smart Admission Data Admit Date/Time: 12/26/24 11:22 Attending Provider: Karine Smart Admit Provider: Karine Smart Primary Care Provider: Anita Groves Other Providers: Wilder Tobin I; Agustin Velazquez; Karine Smart Hospital Stay Data Consultations 12/26/24 10:41 Consult Gastroenterology Stat Consult General Surgery Stat ED Decision to Admit Stat Procedures Performed Operation Date: 12/27/24 11:00 Actual Procedures p Laparoscopic Cholecystectomy(Not Applicable) - Rickey Whitley MD Diagnostic Imagining Performed Chest X-Ray 12/26/24 07:13 EXAM: XR chest 1V portable CLINICAL HISTORY: RUQ abd pain TECHNIQUE: An X-ray image of the chest is obtained in 1 AP projection. COMPARISON: Comparing to prior chest CT on 12/22/2024 FINDINGS: Pulmonary Parenchyma: Stable peripheral fine reticulations. No evidence of consolidation, collapse, or focal opacities. No pulmonary nodules are identified. No evidence of pleural effusion or pleural thickening. Heart and Mediastinum: Heart size and shape are normal. No mediastinal widening or masses. No hilar or mediastinal lymphadenopathy. Bony Thorax: Bony thorax appears intact without fractures or deformities. Soft Tissues: Soft tissues overlying the chest wall are unremarkable. IMPRESSION: 1. Compared to the prior chest CT on 12/22/2024. 2. No acute cardiopulmonary abnormalities are identified. Electronically signed by Toni Jensen 12-26-2024 09:04 AM Gallbladder Ultrasound 12/26/24 07:13 US gallbladder CLINICAL HISTORY: RUQ abd pain COMPARISON STUDY: CT of 12/22/2024 FINDINGS: Pancreatic tail is obscured. There is minimal dilatation of the pancreatic duct measuring 3 mm diameter. Otherwise the visualized pancreatic body is grossly unremarkable. There is normal direction of flow in the portal vein. There is a 2.5 cm patchy echogenic finding in the left hepatic lobe which correlates with the hemangioma seen on the CT. Otherwise the liver is unremarkable measuring 14 cm. Common bile duct is dilated measuring 9 mm di ameter. Gallbladder is mildly dilated. Gallbladder wall is mildly thickened measuring 4 mm thickness. There is a small amount of gallbladder sludge versus layering tiny gallstones. No pericholecystic fluid or ascites. Right kidney shows no hydronephrosis. IMPRESSION: 1. Appearance of the gallbladder could represent early acute cholecystitis. 2. Mild distention of the common bile duct. 3. Otherwise as described. ACT 112: Negative or not required by law. Electronically signed by: Willian Nichols M.D. 12/26/2024 8:38 AM Cholangiopancreatography MRI 12/26/24 11:22 MR MRCP CLINICAL HISTORY: RUQ pain poss choledocholithiasis, cholecystitis COMPARISON STUDY: Ultrasound of 12/26/[address] of 12/22/2024. FINDINGS: There is motion artifact. There are a few tiny gallstones. Gallbladder is mildly dilated with minimal gallbladder wall thickening, possible early cholecystitis. Common bile duct measures 8 mm diameter. No common bile duct stones seen. IMPRESSION: 1. Possible early acute cholecystitis. 2. Minimally dilated common bile duct with no common bile duct stone seen. ACT 112: Negative or not required by law. Electronically signed by: Willian Nichols M.D. 12/26/2024 1:23 PM Pending Results Patient Have Any Pending Studies at Discharge: Yes (pathology report - gallbladder) Discharge Instructions Given to Patient (Per Discharging Provider) Post cholecystectomy (gallbladder removal surgery) for acute cholecystitis -acetaminophen as needed for pain -ondansetron as needed for nausea For constipation (common after surgery): Miralax 1 capful daily or twice a day as needed Senna tabs 1-2 tabs daily as needed -these are both safe to take fdc Dulcolax 5-10 mg tab daily as needed if the above meds are ineffective Dulcolax suppository per rectum daily as needed -these are for more severe constipation and are for short term use These medications are all available over the counter at the drugstore For your diarrhea you can also take imodium as needed Talk to your oncologist about when to restart the Lenvima I increased your carvedilol because your blood pressure is still too high It was a pleasure taking care of you in the hospital, Karine Smart MD Total Time Total Time Spent Total Time Spent (In Minutes): Time spent day of discharge 34 minutes including direct patient care, medication reconciliation, documentation, review of labs and images, and coordination of care. Coding Level of Care Code 61022 INP/OBS DISCH >30 MIN Diagnoses Acute cholecystitis K81.0 Hypokalemia E87.6 Papillary thyroid carcinoma C73 Hypoparathyroidism E20.9 HTN (hypertension) I10
[2024-12-28] MEDS: POTASSIUM CHLORIDE 10 MEQ TABCR PO STA (09:25)
== END 2024-12-28 13:54 | disposition home or self-care (01) ==
LOC: 3E 06:45 → ED 06:45 → 3E 12:04